=== PATIENT | male | born 1940 | race Caucasian/White ===

== ENCOUNTER 2021-08-10 02:09 | Observation (INO) | payer MEDICARE ==
--- NOTE | 2021-08-10 02:29 | ED ---
Recheck HPI - General Stated Complaint: SOB, weakness Time Seen by Provider: 08/10/21 02:13 Source: RN notes reviewed, old records reviewed Limitations: no limitations - History of Present Illness Initial Comments: This is an 16-year-old male DF for evaluation patient accepted as a transfer patient for CHF. Patient sent to ED are emergency department for persistent CHF exacerbation and patient with difficulty breathing, patient arrives in a stable position without any significant acute complaints. No chest pain currently. MD Complaint: other (Transfer patient for CHF) -: hour(s) Returns Today for: persistent/worsening pain related to initial visit Symptoms Since Prior Visit: worsening swelling Context: planned re-check Associated Symptoms: none Treatments Prior to Arrival: other - Related Data Home Medications Medication Instructions Recorded Confirmed Atorvastatin [Lipitor] 40 mg PO HS 08/10/21 08/10/21 Nitroglycerin Sl Tabs [Nitrostat] 0.4 mg SUBLINGUAL Q5M PRN 08/10/21 08/10/21 Previous Rx's Medication Instructions Recorded Apixaban [Eliquis] 2.5 mg PO BID #60 tablet 08/13/21 Furosemide [Lasix] 40 mg PO BID@0900,1600 #120 tab 08/13/21 Losartan [Cozaar] 25 mg PO HS #30 tab 08/13/21 Metoprolol Tartrate [Lopressor] 12.5 mg PO DAILY #30 tab 08/13/21 Spironolactone [Aldactone] 12.5 mg PO DAILY #30 tab 08/13/21 Allergies Allergy/AdvReac Type Severity Reaction Status Date / Time Sulfa (Sulfonamide AdvReac Rash/Hives Verified 08/10/21 07:05 Antibiotics) ticagrelor [From Brilinta] AdvReac Rash/Hives Verified 08/10/21 07:05 Review of Systems ROS Statement: Those systems with pertinent positive or pertinent negative responses have been documented in the HPI. ROS Other: All systems not noted in ROS Statement are negative. Past Medical History - Past Family History Mother Family Medical History: Congestive Heart Failure (CHF) Father Additional Family Medical History / Comment(s): Unsure what father from Brother(s) Additional Family Medical History / Comment(s): One brother with heart murmur General Exam General appearance: alert, in no apparent distress Head exam: Present: atraumatic, normocephalic, normal inspection Eye exam: Present: normal appearance, PERRL, EOMI. Absent: scleral icterus, conjunctival injection, periorbital swelling ENT exam: Present: normal exam, mucous membranes moist Neck exam: Present: normal inspection. Absent: tenderness, meningismus, lymphadenopathy Respiratory exam: Present: normal lung sounds bilaterally. Absent: respiratory distress, wheezes, rales, rhonchi, stridor Cardiovascular Exam: Present: regular rate, normal rhythm, normal heart sounds. Absent: systolic murmur, diastolic murmur, rubs, gallop, clicks GI/Abdominal exam: Present: soft, normal bowel sounds. Absent: distended, tenderness, guarding, rebound, rigid Extremities exam: Present: normal inspection, full ROM, normal capillary refill. Absent: tenderness, pedal edema, joint swelling, calf tenderness Back exam: Present: normal inspection Neurological exam: Present: alert, oriented X3, CN II-XII intact Psychiatric exam: Present: normal affect, normal mood Skin exam: Present: warm, dry, intact, normal color. Absent: rash Course Vital Signs 08/10/21 08/10/21 08/10/21 02:21 02:33 03:00 Temperature 97.9 F Pulse Rate 76 75 Respiratory 18 18 16 Rate Blood Pressure 129/91 129/90 O2 Sat by Pulse 97 95 Oximetry 08/10/21 08/10/21 08/10/21 04:00 05:04 06:41 Temperature Pulse Rate 78 63 73 Respiratory 18 18 18 Rate Blood Pressure 130/80 126/61 136/71 O2 Sat by Pulse 97 98 96 Oximetry 08/10/21 08/10/21 08/10/21 10:00 11:13 17:00 Temperature Pulse Rate 78 74 75 Respiratory 17 18 18 Rate Blood Pressure 125/65 133/77 O2 Sat by Pulse 98 99 95 Oximetry - Reevaluation(s) Reevaluation #1: Medical record is reviewed Patient symptoms are improving here in the emergency department Patient is informed of results and questions answered Patient is in no acute distress Medical Decision Making - Medical Decision Making 80 male to the emergency department. Patient presents today for evaluation regards to severe shortness of breath with known history of CHF. Patient be admitted for cardiology to evaluate - Lab Data Result diagrams: 08/12/21 10:29 08/13/21 07:39 - EKG Data -: EKG Interpreted by Me (EKG is undetermined 76 QRS 180 QTC 48) Disposition Clinical Impression: Congestive heart failure, Systolic congestive heart failure Disposition: ADMITTED IP TO THIS HOSP Condition: Fair
[2021-08-10] MEDS ORDERED: ASPIRIN 81 MG PO STA (02:35)
[2021-08-10] MEDS ORDERED: MORPHINE SULFATE 4 MG/ML SYRINGE IV PRN (02:35)
[2021-08-10] MEDS ORDERED: NITROGLYCERIN SL TABS 0.4 MG TAB SUBLINGUAL PRN (02:35)
[2021-08-10] MEDS ORDERED: HEPARIN SOD,PORK IN 0.45% NACL 25,000 UNIT in 0.45% NACL 1 250ML.BAG IV SCH (02:45)
[2021-08-10] MEDS ORDERED: IOPAMIDOL CONTRAST (ORAL USE) VIAL PO PRN (12:08)
--- NOTE | 2021-08-10 12:17 | ECHOF ---
Referral Reason: MEASUREMENTS -------- HEIGHT: 170.2 cm WEIGHT: 98.9 kg BP: RVIDd: 2.8 cm (< 3.3) IVSd: 1.2 cm (0.6 - 1.1) LVIDd: 5.2 cm (3.9 - 5.3) LVPWd: 1.1 cm (0.6 - 1.1) IVSs: 1.6 cm LVIDs: 4.5 cm LVPWs: 1.1 cm LAESV Index (A-L): 46.58 ml/m IVSd: 1.0 cm (0.6 - 1.1) LVIDd: 6.0 cm (3.9 - 5.3) LVPWd: 1.0 cm (0.6 - 1.1) IVSs: 1.2 cm LVIDs: 4.7 cm LVPWs: 1.0 cm EDV(Teich): 180 ml ESV(Teich): 103 ml EF(Teich): 43 % %FS: 21 % SV(Teich): 77 ml Ao Diam: 3.4 cm (2.0 - 3.7) AV Cusp: 1.0 cm (1.5 - 2.6) LA Diam: 3.4 cm (2.7 - 3.8) MV EXCURSION: 9.382 mm (> 18.000) MV EF SLOPE: 37 mm/s (70 - 150) EPSS: 1.6 cm MV E Florencio: 1.23 m/s MV DecT: 190 ms MV A Florencio: 0.29 m/s MV E/A Ratio: 4.24 AV maxP.10 mmHg AV meanP.49 mmHg AR PHT: 416 ms RAP: 5.00 mmHg RVSP: 16.70 mmHg FINDINGS -------- This was a technically difficult study with suboptimal views. The left ventricular size is normal. There is mild concentric left ventricular hypertrophy. Overa ll left ventricular systolic function is moderate-severely impaired with, an EF between 30 - 35 %. Increased LAP Grade 3 Diastolic Dysfunction. The right ventricle is normal in size. The left atrial size is normal. The right atrial size is normal. Lumason used Aortic valve is trileaflet and is severely thickened. There is moderate aortic regurgitation. The re is severe aortic stenosis present. Peak/mean gradient across the Aortic Valve is 67.10mmHg / 41. 49mmHg. The mitral valve is normal. The mitral valve leaflets are severely thickened. Severe mitral annul ar calcification present. Mild mitral regurgitation is present. The peak and mean MV gradients ar e 18.34mmHg 3.84mmHg as measured by doppler. Can not exclude possible The tricuspid valve appears structurally normal. Mild tricuspid regurgitation present. Right vent ricular systolic pressure is normal at < 35 mmHg. Trace/mild (physiologic) pulmonic regurgitation. The aortic root size is normal. Normal inferior vena cava with normal inspiratory collapse consistent with estimated right atrial pre ssure of 5 mmHg. There is no pericardial effusion. CONCLUSIONS -------- 1. The left ventricular size is normal. 2. There is mild concentric left ventricular hypertrophy. 3. Overall left ventricular systolic function is moderate-severely impaired with, an EF between 30 - 35 %. 4. Increased LAP Grade 3 Diastolic Dysfunction. 5. Aortic valve is trileaflet and is severely thickened. 6. There is moderate aortic regurgitation. 7. There is severe aortic stenosis present. 8. Peak/mean gradient across the Aortic Valve is 67.10mmHg / 41.49mmHg. 9. The mitral valve leaflets are severely thickened. 10. Severe mitral annular calcification present. 11. Mild mitral regurgitation is present. 12. Mild tricuspid regurgitation present. 13. Trace/mild (physiologic) pulmonic regurgitation. 14. There is no pericardial effusion. DOCTOR OF NURSING PRACTICE: Valentina Gray RDCS
[2021-08-10] MEDS: APIXABAN 5 MG TAB PO SCH ×2 (14:01→22:44)
--- NOTE | 2021-08-10 14:08 | P.HPIM ---
History of Present Illness H&P Date: 08/10/21 Chief Complaint: Short of breath History of presenting complaint: This is a pleasant 80-year-old patient Dr. Paz. Chronic stable medical conditions include hyperlipidemia, BPH, hypertension, CAD with stent, atrial flutter fibrillation. Patient presented to [facility] for very was transferred here. Patient stated his shortness of breath has been present for close six-month to one-year and progressively getting worse. No edema. Of recent increase got a cough with some white phlegm. Also has been losing weight. Patient was negative for COVID-19/influenza A and B. No fever no chills. Feels tired and rundown. Computed tomography scan and other place was negative for PE. Did show some pleural effusion. Review of systems: GEN.: Decrease appetite some weight loss EYES: None HEENT: None NECK: None RESPIRATORY: As above CARDIOVASCULAR: None GASTROINTESTINAL: None GENITOURINARY: Decreased urine stream MUSCULOSKELETAL: Joint pains LYMPHATICS: None HEMATOLOGICAL: None PSYCHIATRY: None NEUROLOGICAL: None Past medical history to include: Hyperlipidemia, BPH, hypertension, CAD with a stent in 2013, atrial fibrillation Social history: Patient smokes cigars occasionally. . Used to local [facility]. Her diet. Alcohol occasionally. Family history: Reviewed, known cardiac presentation Physical examination: VITAL SIGNS: Afebrile, 78, 18, 1:30/80, 97% room air GENERAL: BMI 34.1, sitting up in bed, feeling a bit tired. EYES: Pupils equal. Conjunctiva normal. HEENT: External appearance of nose and ears normal, oral cavity grossly normal. NECK: JVD not raised; masses not palpable. HEART: First and second heart sounds are normal; no edema. LUNGS: Respiratory rate increased, decreased breath sounds. ABDOMEN: Soft, nontender, liver spleen not palpable, no masses palpable. PSYCH: Alert and oriented x3; mood and affect normal. MUSCULAR skeletal: Evidence of OA NEUROLOGICAL: Cranial nerves grossly intact; no facial asymmetry, power and sensation grossly intact. LYMPHATICS: No lymph nodes palpable in the axilla and neck INVESTIGATIONS, reviewed in the clinical context: Troponin I 0.026, 0.034. EKG tracing personally reviewed by me-atrial flutter fibrillation with a controlled ventricular rate nonspecific ST segment changes Chest x-ray film personally reviewed by me-no infiltrates, cardiomegaly 2-D echocardiogram: EF 30-35% moderate aortic regurgitation severe aortic stenosis Investigations from [facility]: Troponin 0.047, COVID-19/influenza A/influenza B: All negative WBC 9.8 hemoglobin 13.1 platelets 199 sodium 135 potassium 5.1 BUN 23 creatinine 1.3 Computed tomography scan of the chest shows cardiomegaly, pleural effusion negative for PE. Assessment and plan: -This is a patient has been progressively short of breath anywhere from 6 months to a year. With some weight loss. Will need to rule out underlying malignancy. We will do a computed tomography scan of the abdomen pelvis with contrast -COPD in a light cigar smoker DuoNeb -Severe aortic stenosis with moderate aortic regurgitation, accompanied by cardiomyopathy. Patient should be assessed for surgical intervention. Cardiology and cardiothoracic surgery consulted. -Persistent atrial flutter fibrillation, rate controlled Tenormin 25 mg daily at bedtime. Started on eliquis. -Chronic congestive heart failure from systolic dysfunction EF 30-35%. Possibly a combination of ischemic at a myopathy, severe aortic stenosis. add Aldactone 12.5 mg, Cozaar 12.5 mg daily at bedtime -BPH At Flomax 0.4 mg daily at bedtime -Essential hypertension Tenormin 25 mg daily at bedtime. -Chronic, CAD with a stent in 2013. Asymptomatic Continue aspirin. Tenormin 25 mg daily at bedtime -Hyperlipidemia Lipitor 40 mg daily at bedtime Patient started on eliquis. Consultation to cardiology and cardiothoracic surgery. Care was discussed with the patient. Computed tomography scan of the abdomen pelvis with contrast to rule out any malignancy. We'll also check CEA and alpha feta protein Given the complexity and severity of patient's condition expect the patient to be in the hospital at least for 2 overnights Past Medical History Additional Past Medical History / Comment(s): Urinary hesitancy, Hyperlipidemia, Enlarged prostate, Hypertension, CAD, Controlled A-fib, History of Any Multi-Drug Resistant Organisms: None Reported Additional Past Surgical History / Comment(s): 1 stent placed in 2013, Nasal surgery Past Psychological History: No Psychological Hx Reported Smoking Status: Current some day smoker Past Alcohol Use History: Occasional Medications and Allergies Home Medications Medication Instructions Recorded Confirmed Type Aspirin EC [Ecotrin Low Dose] 81 mg PO DAILY 08/10/21 08/10/21 History Atorvastatin [Lipitor] 40 mg PO HS 08/10/21 08/10/21 History Nitroglycerin Sl Tabs [Nitrostat] 0.4 mg SUBLINGUAL Q5M PRN 08/10/21 08/10/21 History atenoloL [Tenormin] 25 mg PO HS 08/10/21 08/10/21 History Allergies Allergy/AdvReac Type Severity Reaction Status Date / Time Sulfa (Sulfonamide AdvReac Rash/Hives Verified 08/10/21 07:05 Antibiotics) ticagrelor [From Brilinta] AdvReac Rash/Hives Verified 08/10/21 07:05 Physical Exam Vitals: Vital Signs Temp Pulse Resp BP Pulse Ox 08/10/21 06:41 73 18 136/71 96 08/10/21 05:04 63 18 126/61 98 08/10/21 04:00 78 18 130/80 97 08/10/21 03:00 75 16 129/90 95 08/10/21 02:33 18 08/10/21 02:21 97.9 F 76 18 129/91 97 Intake and Output 08/09/21 08/10/21 08/10/21 22:59 06:59 14:59 Other: Weight 98.883 kg
--- NOTE | 2021-08-10 14:14 | CT ---
EXAMINATION TYPE: CT abdomen pelvis w con DATE OF EXAM: 08/10/2021 COMPARISON: None. HISTORY: weight loss CT DLP: 1540.5 mGycm, Automated Exposure Control for Dose Reduction was Utilized. CONTRAST: CT scan of the abdomen and pelvis is performed with oral and with IV Contrast, patient injected with 100 mL of Isovue 300. FINDINGS: LUNG BASES: Small to tiny right slightly larger than left bilateral pleural effusions with associated compressive atelectasis. Calcification level of the mitral valve. Right coronary artery calcificatio n. LIVER/GB: No significant abnormality is appreciated. PANCREAS: Mild to moderate generalized fat replaced atrophy. SPLEEN: No significant abnormality is seen. ADRENALS: No significant abnormality is seen. KIDNEYS: Late phase imaging as there is excretion. No hydronephrosis bilaterally. Some cortical thinn ing greater in the left kidney is noted. Mildly distended contrast filled bladder. BOWEL: Oral contrast reaches sigmoid colon. There is redundant sigmoid colon. No suspicious small or large bowel dilatation. PROSTATE/SEMINAL VESICLES: No gross abnormality seen. LYMPH NODES: No greater than 1cm abdominal or pelvic lymph nodes are appreciated. OSSEOUS STRUCTURES: Underlying scoliosis. Underlying moderate to severe multilevel spurring and disc space narrowing with findings greatest right L2-L3 and left L4-L5 levels. OTHER: Moderate peripheral plaque in the abdominal aorta extends into branch vessels. Aneurysm up to 3.8 cm transversely axial image 36 noted. IMPRESSION: No suspicious mass or adenopathy to suggest neoplasm.
--- NOTE | 2021-08-10 14:59 | XR ---
EXAMINATION TYPE: XR chest 2V DATE OF EXAM: 08/10/2021 COMPARISON: Chest x-ray 11/19/2015 CT 08/10/2021 HISTORY: Shortness of breath TECHNIQUE: Frontal and lateral views of the chest are obtained. FINDINGS: There is no focal air space opacity or pneumothorax seen. Minimal blunting of the posteri or costophrenic angle noted seen on the lateral exam. The cardiac silhouette size is within normal li mits. There are overlying leads. Aorta is dense. The osseous structures are intact, high riding shou lders could be due to chronic rotator cuff tears.. IMPRESSION: Small bilateral pleural effusions
--- NOTE | 2021-08-10 15:51 | CONS ---
CONSULTATION This is an 80-year-old gentleman with a history of atrial fibrillation, CAD with prior PCI and has had some bleeding issues with Brilinta. He also has benign hypertension. He came into the hospital upon a transfer from [place], where he presented with complaints of increasing shortness of breath for about one month's duration. He smokes about half pack of cigarettes daily. He has nondescript intermittent sharp chest pain not suggestive of angina, but seems to be coming randomly. His troponin levels are equivocal, do not suggest myocardial injury, and his shortness of breath also seems to have improved after he arrived. He is not on any blood thinners at this time and there is a remote history of some issues of bleeding with Brilinta after his stent in 2013, the details of which are not available. The patient is a very poor historian and does not give much meaningful information. However, he insists that he is feeling better. He has no shortness of breath and when he came into the hospital at [place], he complained of shortness of breath on and off through the day for the last month or so. No chest pain at the time of my evaluation. EKG reveals atrial fibrillation, controlled rate, nonspecific ST-T changes. He is resting comfortably without symptoms. PAST MEDICAL HISTORY: 1. Probable atrial fibrillation, although patient does not indicate. 2. CAD with prior stenting, details unavailable, in 2013. 3. Benign hypertension. PHYSICAL EXAMINATION: On examination, blood pressure is 128/70, pulse rate is about 84 per minute, irregular. HEENT unremarkable. Fundus was not examined by me. NECK: Supple. There is JVD of 1 cm. No carotid bruit. Heart exam reveals S1, S2 with ejection systolic murmur audible at the base. Second heart sound is preserved. Lungs reveal decent air entry with fine basal rales. Abdomen is soft, nontender. Lower extremities reveal palpable but diminished pulses. Central nervous system grossly no focal deficits. IMPRESSION: 1. Atypical chest pain. 2. Shortness of breath of unclear etiology. CT angio of the chest was negative for any pulmonary embolism. 3. Probable congestive heart failure, which seems to have improved after intravenous Lasix. 4. History of possibly some dementia, although this is unclear. RECOMMENDATIONS: Patient's clinical picture suggests more of congestive heart failure. Pulmonary embolism has been ruled out. Troponins are equivocal. I am recommending that we obtain echocardiogram to assess LV function, place him on atenolol 25 mg daily, Eliquis 5 mg b.i.d., discontinue IV heparin. No aspirin. Lipitor will be 40 mg daily. Based on clinical course, I will make further recommendations. ANA / BENY: [id number] /
--- NOTE | 2021-08-10 16:58 | P.GSCN ---
History of Present Illness Consult date: 08/10/21 Reason for Consult: Severe aortic stenosis Requesting physician: Erick Ruelas History of present illness: This is an 80-year-old gentleman who follows on an outpatient basis with Dr. Paz. He has a previous medical history of coronary artery disease with myocardial infarction and stenting in 2013, hypertension, hyperlipidemia, BPH, and questionable atrial fibrillation on no current anticoagulation outpatient. Apparently this gentleman has been experiencing progressive exertional shortness of breath associated with chest discomfort over the last several months, however it has gotten progressively worse over the last month, and was bad enough to cause concern in the last couple of days so he presented to [facility] for evaluation and treatment. Of note the patient does state he has had a significant weight loss over the prior month as well. At [facility] his Covid/influenza A/influenza B tests were negative, WBC 9.81, hemoglobin 13.1, BUN 23, creatinine 1.3, AST 70, ALT 73, INR 1.29, lactic acid 3.8, BNP 18118, and troponin 0.047. He was given IV Lasix which he states made him feel better. Due to his troponin and presenting symptoms the patient was transferred to [facility] for further monitoring and evaluation. Repeat troponin here was 0.026 and 0.034. [place] [address]. EKG demonstrated controlled atrial fibrillation. Cardiology was consulted with recommendations for echocardiogram. Transthoracic echocardiogram was completed demonstrating impaired left ventricular systolic function with EF 30-35%, grade 3 diastolic dysfunction, moderate aortic insufficiency, severe aortic stenosis with peak/mean gradients 67/41 mmHg, mild mitral regurgitation with severe MAC, and mild tricuspid regurgitation. Due to findings of severe aortic stenosis consultation was place d to cardiothoracic surgery. Review of Systems Review of systems was completed and was negative except as noted - Constitutional Reports as per HPI, Reports weight loss - Cardiovascular Reports as per HPI, Reports chest pain, Reports decreased exercise tolerance, Reports dyspnea on exertion, Reports shortness of breath - Respiratory Reports as per HPI, Reports dyspnea Past Medical History Past Medical History: Coronary Artery Disease (CAD), Heart Failure, Hyperlipidemia, Hypertension, Myocardial Infarction (PR) Additional Past Medical History / Comment(s): Urinary hesitancy, Enlarged prostate, Controlled A-fib, History of Any Multi-Drug Resistant Organisms: None Reported Past Surgical History: Heart Catheterization With Stent Additional Past Surgical History / Comment(s): 1 stent placed in 2013, Nasal surgery Past Anesthesia/Blood Transfusion Reactions: No Reported Reaction Past Psychological History: No Psychological Hx Reported Smoking Status: Current some day smoker Past Alcohol Use History: Occasional Past Drug Use History: None Reported Additional History: Smokes an occasional cigar, 1-2 beers per week - Past Family History Mother Family Medical History: Congestive Heart Failure (CHF) Father Additional Family Medical History / Comment(s): Unsure what father from Brother(s) Additional Family Medical History / Comment(s): One brother with heart murmur Medications and Allergies Home Medications Medication Instructions Recorded Confirmed Type Aspirin EC [Ecotrin Low Dose] 81 mg PO DAILY 08/10/21 08/10/21 History Atorvastatin [Lipitor] 40 mg PO HS 08/10/21 08/10/21 History Nitroglycerin Sl Tabs [Nitrostat] 0.4 mg SUBLINGUAL Q5M PRN 08/10/21 08/10/21 History atenoloL [Tenormin] 25 mg PO HS 08/10/21 08/10/21 History Allergies Allergy/AdvReac Type Severity Reaction Status Date / Time Sulfa (Sulfonamide AdvReac Rash/Hives Verified 08/10/21 07:05 Antibiotics) ticagrelor [From Brilinta] AdvReac Rash/Hives Verified 08/10/21 07:05 Surgical - Exam Vital Signs Temp Pulse Resp BP Pulse Ox 97.9 F 76 18 129/91 97 08/10/21 02:21 08/10/21 02:21 08/10/21 02:21 08/10/21 02:21 08/10/21 02:21 CONSTITUTIONAL: Awake and alert, appears comfortable, cooperative, well- developed, well-nourished, no pain, no acute distress EYES: Pupils equal, round, reactive to light, normal ocular movement ENT: Moist mucous membranes without oral lesions present, no upper teeth NECK: No masses, no bruits, trachea midline RESPIRATORY: Lungs sounds diminished to auscultation bilaterally. Respirations even, nonlabored. Currently on room air with oxygen saturation 98%. Strong cough. No chest wall deformities. No clubbing or cyanosis present CARDIOVASCULAR: S1, S2 present, positive systolic murmur. Irregular rate and rhythm, controlled age of fibrillation on telemetry. Palpable peripheral pulses bilaterally. No edema present. No calf pain or tenderness noted. GASTROINTESTINAL: Abdomen soft, nontender, nondistended without masses or organomegaly noted. There is no rebound or guarding present. Active bowel sounds present 4 quadrants. GENITOURINARY: Deferred INTEGUMENTARY: Skin is warm and dry with evidence of good perfusion. NEUROLOGIC: Cranial nerves II through XII intact, normal coordination, no obvious motor or sensory deficits, speech is normal MUSKULOSKELETAL: Able to move all extremities, strength equal bilaterally, normal posture PSYCHIATRIC: Alert and oriented to person place and time, appropriate affect, intact judgment and insight Results - Imaging Chest x-ray: report reviewed, image reviewed CT scan - abdomen: report reviewed, image reviewed CT scan - pelvis: report reviewed, image reviewed EKG: image reviewed Assessment and Plan Assessment: 1. Severe aortic stenosis with peak/mean gradient 67/41 mmHg, moderate aortic insufficiency 2. Acute on chronic systolic heart failure with EF 30-35%, cardiomyopathy, grade 3 diastolic dysfunction 3. Shortness of breath secondary to above 4. History of coronary artery disease with myocardial infarction and stenting in 2013 5. History of hypertension, treated 6. History of hyperlipidemia, treated 7. Enlarged prostate 8. Questionable history of atrial fibrillation on no current anticoagulation outpatient Plan: The patient was seen and examined in the emergency room. Chart/diagnostics were reviewed. The case was discussed with Dr. Johns. Currently the patient is in no distress, he denies any pain or shortness of breath and does not want to stay in the hospital for very long. He is also worried about multiple tests and whether or not insurance will pay for them. We did discuss treatment for aortic stenosis including surgical as well as transcatheter aortic valve replacement. The patient is not committed but is willing to consider treatment. We will order carotid Dopplers, pulmonary function test, and lab work which has not yet been completed. If patient is agreeable to aortic valve replacement he will need heart catheterization to evaluate coronary arteries, transesophageal echocardiogram to further evaluate valves, and dental clearance as well as gated CT if the plan is for TAVR. Once all testing has been completed an STS risk score will be calculated and discussed with the patient. If cardiology is in agreement the patient can be seen in the valve clinic as an outpatient after all testing has been completed for shared decision-making with the entire structural heart team. Medical management of other comorbidities per primary care, cardiology. More recommendations to follow. Thank you Dr. Ruelas for this consult. We look forward to working with you with the care of your patient Time with Patient: Greater than 30
[2021-08-10] MEDS: SPIRONOLACTONE 25 MG TAB PO SCH (18:21)
--- NOTE | 2021-08-10 18:26 | US ---
EXAMINATION TYPE: US carotid duplex BILAT DATE OF EXAM: 08/10/2021 COMPARISON: NONE CLINICAL HISTORY: preop valve surgery. EXAM MEASUREMENTS: RIGHT: Peak Systolic Velocity (PSV) cm/sec ----- Right CCA: 66.7 ----- Right ICA: 91.9 ----- Right ECA: 68.0 ICA/CCA ratio: 1.4 RIGHT: End Diastole cm/sec ----- Right CCA: 10.0 ----- Right ICA: 9.5 ----- Right ECA: 5.4 LEFT: Peak Systolic Velocity (PSV) cm/sec ----- Left CCA: 41.9 ----- Left ICA: 128.2 ----- Left ECA: 90.8 ICA/CCA ratio: 3.1 LEFT: End Diastole cm/sec ----- Left CCA: 0.0 ----- Left ICA: 5.1 ----- Left ECA: 12.6 VERTEBRALS (direction of flow): Right Vertebral: Antegrade Left Vertebral: Antegrade Rhythm: Normal Moderate/severe amount of plaque visualized in bilateral bulbs, left greater than right. Slightly mica vated velocities visualized left proximal ICA. Elevated ICA/CCA ratio on the left IMPRESSION: There is antegrade flow in the vertebral arteries. The images and measurements suggest 50% stenosis i n the right common and internal carotid artery. There is 50-70% stenosis in the left common and inter nal carotid artery. Criteria for Assigning % of Stenosis / Diameter reduction (Estimation based on the indirect measurements of the internal carotid artery velocities (ICA PSV). 1. Normal (no stenosis)=ICA PSV < 125 cm/s: ratio < 2.0: ICA EDV<40 cm/s. 2. Less than 50% stenosis=ICA PSV < 125 cm/s: ratio < 2.0: ICA EDV<40 cm/s. 3. 50 to 69% stenosis=ICA PSV of 125 to 230 cm/s: ration 2.0 ? 4.0: ICA EDV 40-100 cm/s. 4. Greater than 70% stenosis to near occlusion= ICA PSV > 230 cm/s: ratio > 4.0: ICA EDV > 100 cm/s. 5. Near occlusion= ICA PSV velocities may be low or undetectable: variable ratio and ICA EDV. 6. Total occlusion=unable to detect flow.
[2021-08-10] MEDS ORDERED: LOSARTAN 25 MG TAB PO SCH (21:00)
[2021-08-10] MEDS ORDERED: atenoloL 25 MG TAB PO SCH (21:00)
[2021-08-10] MEDS: ATORVASTATIN 40 MG TAB PO SCH (22:44)
[2021-08-11 07:35] LABS: Magnesium 2.1 mg/dL (1.6-2.3); Potassium 4.6 mmol/L (3.5-5.1)
[2021-08-11] MEDS ORDERED: ASPIRIN 325 MG TAB PO SCH (09:00)
[2021-08-11] MEDS: FUROSEMIDE 20 MG TAB PO SCH ×2 (09:00→17:02)
[2021-08-11] MEDS: METOPROLOL TARTRATE 12.5 MG TAB PO SCH (09:00)
[2021-08-11] MEDS ORDERED: ASPIRIN 81 MG PO SCH (09:00)
[2021-08-11] MEDS: ENOXAPARIN 80 MG/0.8 ML SYRINGE SQ SCH ×2 (09:01→20:38)
[2021-08-11] MEDS: SODIUM CHLORIDE 0.9% 1,000 ML IV SCH (09:01)
[2021-08-11] MEDS: SPIRONOLACTONE 25 MG TAB PO SCH (09:01)
[2021-08-11] MEDS ORDERED: ALPRAZolam 0.5 MG TAB PO PRN (09:13)
[2021-08-11] MEDS ORDERED: ALPRAZolam 0.25 MG TAB PO PRN (09:13)
--- NOTE | 2021-08-11 09:14 | P.PN ---
Subjective Progress Note Date: 08/11/21 Principal diagnosis: Severe aortic valve stenosis, with transthoracic echocardiogram demonstrating impaired left ventricular systolic function with an ejection fraction 30-35%, and moderate aortic valve insufficiency. Past medical history significant for coronary artery disease with myocardial infarction and stent placement in 2013, hypertension, hyperlipidemia, BPH and paroxysmal atrial fibrillation on no current anticoagulation as an outpatient. The patient was seen in follow-up today 08/11/2021 at his bedside on the cardiac stepdown unit. Currently he is laying in bed with his head elevated, is awake, alert and oriented 3 and is in no acute distress. Denies any complaints of shortness of breath, chest pain/pressure, although is complaining of some abdominal cramping. The patient reports she has been having abdominal cramping with diarrhea off and on for the last 3-4 weeks with about a 20 pound weight loss over that time. A consult was placed by primary care service for the patient to be evaluated for his aortic valve stenosis. A transthoracic echocardiogram was completed yesterday which demonstrated mild concentric left ventricular hypertrophy, and overall left ventricular systolic function to be moderate to severely impaired with an ejection fraction between 30-35%, increased LAP grade 3 diastolic dysfunction, a trileaflet aortic valve to be severely thickened with severe aortic valve stenosis, a peak/mean gradient across aortic valve of 67.10 mmHg/41.49 mmHg, moderate aortic valve regurgitation, severe mitral annular calcification, mild mitral valve regurgitation, mild tricuspid valve regurgitation and trace to mild pulmonic valve regurgitation. A bedside FEV1 was completed yesterday which showed a predicted value of 34%, 1.76 L. Currently is on room air with oxygen saturations 96% and he is achieving 1500 mL on his incentive spirometry. He also underwent a carotid duplex study yesterday which showed a 50% right internal carotid stenosis and a 50-70% left internal carotid artery stenosis. The patient is being followed by cardiology. The patient has been afebrile the last 24 hours, remote telemetry showing atrial fibrillation heart rate 59 BPM. He remains on aspirin, statin, Lasix, Aldactone and beta krystyna. Objective - Vital Signs Vital signs: Vital Signs Temp 97.6 F 08/11/21 07:56 Pulse 71 08/11/21 07:56 Resp 16 08/11/21 07:56 BP 97/62 08/11/21 07:56 Pulse Ox 96 08/11/21 07:56 Intake & Output 08/10/21 08/11/21 08/11/21 18:59 06:59 18:59 Intake Total 45.833 Balance 45.833 Weight 90.1 kg Intake: Intake, IV Titration 45.833 Amount Heparin Sod,Pork in 0.45% 45.833 NaCl 25,000 unit In 0.45 % NaCl 1 250ml.bag @ 10. 113 UNITS/KG/HR 10 mls/hr IV .Q24H [facility] Rx#: [id number] Other: Voiding Method Toilet # Voids 1 # Bowel Movements 1 - Exam CONSTITUTIONAL: Lying in bed with his head elevated on the cardiac stepdown unit, appears comfortable, cooperative, no apparent acute distress. HEENT: Neck is supple, no JVD, no lymphadenopathy. RESPIRATORY: Lungs sounds essentially clear throughout, diminished to his bilateral bases with few scattered crackles. Respirations are symmetrical and nonlabored. Currently room air with oxygen saturations 96%. Able to achieve 1500 mL on their incentive spirometry. Strong cough. CARDIOVASCULAR: Irregular rhythm and controlled rate. S1 and S2 present, negative for S3, or gallop. Positive systolic murmur. Palpable peripheral pulse s bilaterally. Remote telemetry showing atrial fibrillation heart rate 59 BPM. GASTROINTESTINAL: Abdomen soft, nontender, nondistended. Active bowel sounds present 4 quadrants. Tolerating diet. Passing flatus. No organomegaly appreciated. No guarding or rigidity. Obese. GENITOURINARY: Continues to void. INTEGUMENTARY: Skin is warm and dry with no evidence of clubbing or cyanosis. NEUROLOGIC: Cranial nerves II through XII intact. No focal deficits. MUSKULOSKELETAL: Able to move all extremities, strength equal bilaterally, generalized weakness. PSYCHIATRIC: Alert and oriented to person place and time, appropriate affect, intact judgment and insight. - Allied health notes Allied health notes reviewed: nursing - Labs CBC & Chem 7: 08/11/21 06:41 - Imaging and Cardiology Chest x-ray: report reviewed, image reviewed Carotid duplex study results reviewed. FEV1 results reviewed. Assessment and Plan Assessment: 1. Severe aortic valve stenosis with a peak/mean gradient 67/41 mmHg, moderate aortic insufficiency 2. Acute on chronic systolic heart failure with EF 30-35%, cardiomyopathy, grade 3 diastolic dysfunction 3. Shortness of breath secondary to above 4. History of coronary artery disease with myocardial infarction and stenting in 2013 5. History of hypertension, treated 6. Dyslipidemia, treated 7. Benign prostatic hypertrophy 8. Paroxysmal atrial fibrillation on no current anticoagulation outpatient, currently on Lovenox Plan: 1. Continue to maximize medical therapy with aspirin, statin, beta krystyna, Lasix, Aldactone and Cozaar managed by cardiology. 2. We will continue to follow on an as-needed basis, if the patient is considered a candidate for TAVR he will be followed on an outpatient basis in the structural heart clinic. 3. He is scheduled for a heart catheterization tomorrow 08/12/2021 to be completed by Dr. DANILO Park. 4. Continue to encourage use of his incentive spirometry 10 times every hour while awake. 5. At this time the patient is unsure whether he would want to undergo any type of valve surgery, he reports that in 2013 he was supposed to undergo a valve surgery and did not follow-up. 6. Medical management and other comorbidities per primary care and cardiology service. 7. Please feel free to reconsult for any further questions or workup regarding TAVR. Time with Patient: Greater than 30
--- NOTE | 2021-08-11 09:14 | P.PN ---
Subjective This is a pleasant 80-year-old male past medical history significant for coronary artery disease status post PCI, atrial fibrillation, hypertension, chronic nicotine dependence and dyslipidemia. He has followed in the past with Dr. Paulino but has not been to the office since 2016. At that time he was known to have atrial fibrillation however declined anticoagulation. He also had a known history of aortic stenosis. Echocardiogram obtained at that time January 2017 revealed preserved LV systolic function with ejection fraction 50%, mildly dilated right atrium, thickened aortic valve with a mean gradient of 30 mmHg and mild tricuspid regurgitation. Catheterization report reviewed from [facility] from 2013 revealing left main angiographically normal, LAD with a 60% lesion in the midsegment, circumflex with a long 70% proximal lesion and RCA with a proximal lesion. At that time he underwent successful angioplasty and PC I with a bare metal stent to the RCA. He is seen and examined resting comfortably sitting up in bed in no acute distress. He complains of feeling a little short of breath last night however he states this morning he felt better. He did get up and ambulate to the bathroom without difficulty. Blood pressure 97/62 heart rate 71 afebrile maintaining oxygen saturation on room air. Telemetry tracings reviewed, he continues to be in atrial fibrillation with controlled ventricular rates. No ventricular arrhythmias or significant pauses noted. Currently maintained on Eliquis 2.5 mg twice a day, atorvastatin 80 mg daily, losartan 12.5 mg at bedtime, atenolol 25 mg at bedtime and Aldactone 12.5 mg daily. Echocardiogram obtained reveals impaired LV systolic function with ejection fraction 30-35%, grade 3 diastolic dysfunction, aortic valve is trileaflet and severely thickened with moderate aortic regurgitation and severe aortic stenosis with a mean gradient of 41 mmHg, severe mitral annular calcification with mild mitral regurgitation and mild tricuspid regurgitation. GENERAL: Well-appearing, well-nourished and in no acute distress. NECK: Supple without JVD or thyromegaly. LUNGS: Breath sounds clear to auscultation bilaterally. Respiration equal and unlabored. No wheezes, rales or rhonchi. HEART: Irregular rate and rhythm with systolic ejection murmur at the base, no rubs or gallops. S1 and S2 heard. EXTREMITIES: Normal range of motion, no edema. No clubbing or cyanosis. Perip heral pulses intact. ASSESSMENT Acute systolic heart failure Aortic stenosis Coronary artery disease status post PCI to the RCA in 2013 with residual disease noted in the circumflex and LAD Chronic persistent atrial fibrillation with controlled ventricular rates Hypertension Dyslipidemia Chronic nicotine dependence PLAN Lengthy discussion had with the patient regarding need for repeat cardiac ca theterization to assess coronary artery disease prior to evaluation of aortic valve repair. He is agreeable to undergo cardiac catheterization tomorrow. I have discussed the risks, benefits and alternative therapies for the above- mentioned procedure and for both sedation/analgesia as well as necessary blood product administration, if indicated, as they pertain to this patient. The patient has indicated understanding and acceptance of the risks and procedures discussed. Questions have been answered appropriately. Hold Eliquis and initiate Lovenox pending cardiac catheterization. Change beta krystyna to metoprolol 12.5 mg daily in the morning. Increase losartan to 25 mg. Initiate Lasix 60 mg by mouth twice a day. Check BMP today and in the morning. Further recommendations to follow based upon clinical course. Nurse Practitioner note has been reviewed, I agree with a documented findings and plan of care. Patient was seen and examined. Objective - Vital Signs Vital signs: Vital Signs Temp 97.6 F 08/11/21 07:56 Pulse 71 08/11/21 07:56 Resp 16 08/11/21 07:56 BP 97/62 08/11/21 07:56 Pulse Ox 96 08/11/21 07:56 Intake & Output 08/10/21 08/11/21 08/11/21 18:59 06:59 18:59 Intake Total 45.833 Balance 45.833 Weight 90.1 kg Intake: Intake, IV Titration 45.833 Amount Heparin Sod,Pork in 0.45% 45.833 NaCl 25,000 unit In 0.45 % NaCl 1 250ml.bag @ 10. 113 UNITS/KG/HR 10 mls/hr IV .Q24H [facility] Rx#: [id number] Other: Voiding Method Toilet # Voids 1 # Bowel Movements 1 - Labs CBC & Chem 7: 08/11/21 06:41
[2021-08-11 10:20] LABS: Calcium 9.1 mg/dL (8.4-10.2); Potassium 4.5 mmol/L (3.5-5.1)
--- NOTE | 2021-08-11 19:13 | P.PN ---
Progress Note - Text Progress Note Date: 08/11/21 Chief Complaint: Short of breath History of presenting complaint: This is a pleasant 80-year-old patient Dr. Paz. Chronic stable medical conditions include hyperlipidemia, BPH, hypertension, CAD with stent, atrial flutter fibrillation. Patient presented to [facility] for very was transferred here. Patient stated his shortness of breath has been present for close six-month to one-year and progressively getting worse. No edema. Of recent increase got a cough with some white phlegm. Also has been losing weight. Patient was negative for COVID-19/influenza A and B. No fever no chills. Feels tired and rundown. Computed tomography scan and other place was negative for PE. Did show some pleural effusion. Patient felt to have angina equivalent from severe aortic stenosis., Underlying CAD, cardiomyopathy. Patient did receive IV Lasix yesterday. August 11: Sitting up in bed. Tired. Seen by Dr. DANILO Park from cardiology. On by mouth Lasix. Plan is for cardiac catheterization tomorrow. On IV heparin. Patient has previously followed with cardiothoracic surgery and had declined surgery in the past. Patient has several questions about the same. I did discuss with him in broad terms. Review of systems: Was done for constitutional, cardiovascular, GI, pulmonary. relevant finding as above Active Medications Alprazolam (Alprazolam 0.25 Mg Tab) 0.25 mg PO Q6HR PRN PRN Reason: Mild Anxiety Alprazolam (Alprazolam 0.5 Mg Tab) 0.5 mg PO Q6HR PRN PRN Reason: Moderate Anxiety Aspirin (Aspirin 325 Mg Tab) 325 mg PO ONCE ONE Stop: 08/12/21 06:01 Atorvastatin Calcium (Atorvastatin 40 Mg Tab) 40 mg PO HS [facility] Last Admin: 08/10/21 22:44 Dose: 40 mg Documented by: Enoxaparin Sodium (Enoxaparin 80 Mg/0.8 Ml Syringe) 80 mg SQ Q12HR [facility] Last Admin: 08/11/21 09:01 Dose: 80 mg Documented by: Furosemide (Furosemide 20 Mg Tab) 60 mg PO BID@0900,1600 [facility] Last Admin: 08/11/21 17:02 Dose: 60 mg Documented by: Sodium Chloride (Saline 0.9%) 1,000 mls @ 20 mls/hr IV .Q24H [facility] Last Admin: 08/11/21 09:01 Dose: 20 mls/hr Documented by: Sodium Chloride 1,000 ml/ IV (Solution) 1,000 mls @ 90.1 mls/hr IV .Q11H6M [facility] Heparin Sodium (Porcine) 10, (000 unit/ Sodium Chloride) 1,001 mls @ 999 mls/hr IRRIGATION ONCE PRN PRN Reason: INTRA-OP Stop: 08/12/21 23:00 Heparin Sodium (Porcine) 2,500 (unit/ Sodium Chloride) 250.5 mls @ 250 mls/hr IRRIGATION ONCE PRN PRN Reason: INTRA-OP Stop: 08/12/21 23:00 Losartan Potassium (Losartan 25 Mg Tab) 25 mg PO [facility] Metoprolol Tartrate (Metoprolol Tartrate 12.5 Mg Tab) 12.5 mg PO DAILY [facility] Last Admin: 08/11/21 09:00 Dose: 12.5 mg Documented by: Nitroglycerin (Nitroglycerin Sl Tabs 0.4 Mg Tab) 0.4 mg SUBLINGUAL Q5M PRN PRN Reason: Chest Pain Spironolactone (Spironolactone 25 Mg Tab) 12.5 mg PO DAILY [facility] Last Admin: 08/11/21 09:01 Dose: 12.5 mg Documented by: Past medical history to include: Hyperlipidemia, BPH, hypertension, CAD with a stent in 2013, atrial fibrillation Social history: Patient smokes cigars occasionally. . Used to local [facility]. Her diet. Alcohol occasionally. Family history: Reviewed, known cardiac presentation Physical examination: VITAL SIGNS: 97.6, 71, 16, 97.62, 96% room air GENERAL: Reclining in bed, awake, tired EYES: Pupils equal. Conjunctiva normal.. NECK: JVD not raised; masses not palpable. HEART: First and second heart sounds are normal; no edema. LUNGS: Respiratory rate increased, decreased breath sounds. ABDOMEN: Soft, nontender, liver spleen not palpable, no masses palpable. PSYCH: Alert and oriented x3; mood and affect normal. MUSCULAR skeletal: Evidence of OA INVESTIGATIONS, reviewed in the clinical context: August 11: Sodium 132 potassium 4.5 BUN 32 creatinine 1.40 Computed tomography scan of abdomen pelvis: Some chronic changes Carotid Doppler: 50% stenosis in the right common internal carotid artery. 50- 70% stenosis with left common and internal carotid artery. Troponin I 0.026, 0.034. EKG tracing personally reviewed by me-atrial flutter fibrillation with a controlled ventricular rate nonspecific ST segment changes Chest x-ray film personally reviewed by me-no infiltrates, cardiomegaly 2-D echocardiogram: EF 30-35% moderate aortic regurgitation severe aortic stenosis Investigations from [facility]: Troponin 0.047, COVID-19/influenza A/influenza B: All negative WBC 9.8 hemoglobin 13.1 platelets 199 sodium 135 potassium 5.1 BUN 23 creatinine 1.3 Computed tomography scan of the chest shows cardiomegaly, pleural effusion negative for PE. Assessment and plan: -Possible angina eqivalent/short of breath from severe aortic stenosis, cardiomyopathy, and underlying ischemic heart disease: Sodium respond Follow with cardiology -COPD in a light cigar smoker DuoNeb -Severe aortic stenosis with moderate aortic regurgitation, accompanied by cardiomyopathy. Patient was seen previously by cardiothoracic surgery and had declined surgery that was offered. Follow with cardiology -Persistent atrial flutter fibrillation, rate controlled Tenormin 25 mg daily at bedtime. eliquis. -Possible CK D. Creatinine 1.4 Currently on by mouth Lasix. Follow closely. -Chronic congestive heart failure from systolic dysfunction EF 30-35%. Possibly a combination of ischemic at a myopathy, severe aortic stenosis. add Aldactone 12.5 mg, Cozaar 12.5 mg daily at bedtime -BPH At Flomax 0.4 mg daily at bedtime -Essential hypertension Tenormin 25 mg daily at bedtime. -Chronic, CAD with a stent in 2013. Asymptomatic Continue aspirin. Tenormin 25 mg daily at bedtime -Hyperlipidemia Lipitor 40 mg daily at bedtime -Nonobstructive carotid artery disease bilaterally left greater than right Management antiplatelet agents. Lipitor Patient's symptoms appear to be predominantly from aortic stenosis, cardiomyopathy and underlying ischemic heart disease. Dr. DANILO Park's progressing with cardiac catheterization tomorrow. We will keep a close eye on patient's renal function. Repeat BMP in the morning. Renal ultrasound. Nephro logy consult
[2021-08-11] MEDS: ATORVASTATIN 40 MG TAB PO SCH (20:37)
[2021-08-11] MEDS: LOSARTAN 25 MG TAB PO SCH (20:38)
[2021-08-11] MEDS: SODIUM CHLORIDE 0.9% 1,000 ML in EMPTY BAG 1 BAG IV SCH (20:41)
--- NOTE | 2021-08-11 21:01 | US ---
EXAMINATION TYPE: US kidneys/renal and bladder DATE OF EXAM: 08/11/2021 COMPARISON: CT 08/10/2021 CLINICAL HISTORY: Assess for CKD. Difficult exam due to overlying bowel gas EXAM MEASUREMENTS: Right Kidney: 9.7 x 5.2 x 4.7 cm Left Kidney: 9.5 x 5.2 x 5.2 cm Right Kidney: No hydronephrosis or masses seen Left Kidney: No hydronephrosis or masses seen Bladder: Not visualized, patient has just voided IMPRESSION: No evidence of renal mass or obstruction. Urinary bladder not evaluated.
[2021-08-12 02:35] LABS: Hepatitis A Antibody IgM Nonreactive (Nonreactive); Hepatitis B Core IgM Nonreactive (Nonreactive); Hepatitis C IgG Antibody Nonreactive (Nonreactive)
[2021-08-12 03:09] LABS: Hepatitis B Surface Antigen ConfNotVal
[2021-08-12] MEDS: SODIUM CHLORIDE 0.9% 1,000 ML IV SCH (05:23)
[2021-08-12] MEDS: METOPROLOL TARTRATE 12.5 MG TAB PO SCH (05:23)
[2021-08-12 05:52] LABS: Glucose,Whole Blood 94 mg/dL (75-99)
[2021-08-12] MEDS ORDERED: ASPIRIN 325 MG TAB PO ONE (06:00)
[2021-08-12] MEDS ORDERED: HEPARIN SODIUM,PORCINE 2,500 UNIT in SODIUM CHLORIDE 0.9% 250 ML IRRIGATION PRN (07:00)
[2021-08-12] MEDS ORDERED: HEPARIN SODIUM,PORCINE 10,000 UNIT in SODIUM CHLORIDE 0.9% 1,000 ML IRRIGATION PRN (07:00)
[2021-08-12] MEDS ORDERED: .fentaNYL (PF) 50 MCG/ML 2 ML AMP ONE (07:23)
[2021-08-12] MEDS ORDERED: MIDAZOLAM 2 MG/2 ML VIAL IV ONE (07:30)
[2021-08-12] MEDS ORDERED: .fentaNYL (PF) 50 MCG/ML 2 ML AMP IV ONE (07:30)
[2021-08-12] MEDS ORDERED: IV FLUID CONTINUATION 950 ML IV ONE (07:31)
[2021-08-12] MEDS ORDERED: IV FLUID CONTINUATION 850 ML IV ONE (07:44)
[2021-08-12] MEDS ORDERED: IOPAMIDOL-370 125ML BTL INJ ONE (08:32)
[2021-08-12 08:37] LABS: O2 Sat Blood Gas 98.4 %
[2021-08-12 08:47] LABS: O2 Sat Blood Gas 61.2 %
[2021-08-12 08:54] LABS: O2 Sat Blood Gas 68.7 %
[2021-08-12 08:56] LABS: O2 Sat Blood Gas 66.4 %
[2021-08-12] MEDS: SODIUM CHLORIDE 0.9% 1,000 ML in EMPTY BAG 1 BAG IV SCH ×2 (09:00→20:27)
[2021-08-12] MEDS ORDERED: RX INFO: IV CONTRAST WAS GIVEN 1 EACH MISC MISCELLANE PRN (09:31)
[2021-08-12] MEDS: FUROSEMIDE 20 MG TAB PO SCH ×2 (09:36→15:39)
[2021-08-12] MEDS: ENOXAPARIN 80 MG/0.8 ML SYRINGE SQ SCH (09:37)
--- NOTE | 2021-08-12 09:48 | P.NPCON ---
History of Present Illness - Reason for Consult acute renal failure - History of Present Illness Reason for consultation: Acute kidney injury History of present illness: Patient is a 80-year-old male seen in renal consultation for acute kidney injury. Patient's creatinine on admission was 1.4. No other records available. Patient presented to the hospital with diaphoresis and shortness of breath. Patient has a history of coronary artery disease with stenting in the past. Patient underwent cardiac catheterization this morning without any interventions. He's currently receiving normal saline at 50 mL an hour. Echocardiogram showed ejection fraction of 30-35% with moderate aortic regurgitation. Currently denies any chest pain or shortness of breath. Denies use of nonsteroidals. He is on heparin drip. He is maintained on oral Lasix 60 mg twice daily as well. Blood pressure is well controlled. No fever or chills. No cough. Afebrile. No family history of kidney disease. No history of diabetes. Vital signs are stable. General: The patient appeared well nourished and normally developed. HEENT: Head exam is unremarkable. LUNGS: Breath sounds decreased. HEART: Rate and Rhythm are regular. ABDOMEN: Soft, no distention. EXTREMITITES: No edema. Past Medical History Past Medical History: Coronary Artery Disease (CAD), Heart Failure, Hyper lipidemia, Hypertension, Myocardial Infarction (NH) Additional Past Medical History / Comment(s): Urinary hesitancy, Enlarged prostate, Controlled A-fib, Last Myocardial Infarction Date:: 2013 History of Any Multi-Drug Resistant Organisms: None Reported Past Surgical History: Heart Catheterization With Stent Additional Past Surgical History / Comment(s): 1 stent placed in 2013, Nasal surgery Past Anesthesia/Blood Transfusion Reactions: No Reported Reaction Date of Last Stent Placement:: 2013 Past Psychological History: No Psychological Hx Reported Smoking Status: Current some day smoker Past Alcohol Use History: Occasional Past Drug Use History: None Reported - Past Family History Mother Family Medical History: Congestive Heart Failure (CHF) Father Additional Family Medical History / Comment(s): Unsure what father from Brother(s) Additional Family Medical History / Comment(s): One brother with heart murmur Medications and Allergies Home Medications Medication Instructions Recorded Confirmed Type Aspirin EC [Ecotrin Low Dose] 81 mg PO DAILY 08/10/21 08/10/21 History Atorvastatin [Lipitor] 40 mg PO HS 08/10/21 08/10/21 History Nitroglycerin Sl Tabs [Nitrostat] 0.4 mg SUBLINGUAL Q5M PRN 08/10/21 08/10/21 History atenoloL [Tenormin] 25 mg PO HS 08/10/21 08/10/21 History Allergies Allergy/AdvReac Type Severity Reaction Status Date / Time Sulfa (Sulfonamide AdvReac Rash/Hives Verified 08/10/21 07:05 Antibiotics) ticagrelor [From Brilinta] AdvReac Rash/Hives Verified 08/10/21 07:05 Physical Exam Vitals: Vital Signs Temp Pulse Pulse Resp BP Pulse Ox 08/12/21 09:30 68 16 131/58 98 08/12/21 09:15 69 17 125/75 96 08/12/21 09:00 98.1 F 78 16 123/60 98 08/12/21 03:39 98 F 68 16 121/62 95 08/11/21 23:55 84 16 109/68 98 08/11/21 20:00 98 F 64 88 16 102/65 98 08/11/21 16:00 98.1 F 64 16 123/60 94 L 08/11/21 12:00 80 16 105/60 98 Intake and Output 08/11/21 08/12/21 08/12/21 22:59 06:59 14:59 Intake Total 200 Output Total 400 Balance -400 200 Intake: IV 200 Output: Urine 400 Other: Voiding Method Toilet Toilet # Voids 1 2 # Bowel Movements 1 Weight 88.2 kg Results - Lab Results Most recent lab results Calcium 9.1 mg/dL (8.4-10.2) 08/11/21 09:52 Magnesium 2.1 mg/dL (1.6-2.3) 08/11/21 06:41 08/11/21 09:52 Assessment and Plan Plan: Assessment: 1. Acute kidney injury versus underlying chronic kidney disease. Creatinine 1.4 on admission yesterday. No other labs available. Etiology is nephrosclerosis and cardiorenal syndrome. No hydronephrosis noted on kidney ultrasound. 2. History of coronary artery disease. Underwent cardiac catheterization this morning without any intervention. 3. Hyponatremia secondary to acute kidney injury. 4. Mild metabolic acidosis secondary to acute kidney injury and IV fluids. 5. Acute systolic CHF with ejection fraction of 30-35% with moderate aortic regurgitation. Plan: Currently on normal saline at 50 mL an hour. Hep-Lock at 4 PM today. Resume oral Lasix tonight. Check urinalysis. Continue to monitor renal function and urine output. Monitor for contrast- induced acute kidney injury. Thank you for the consultation. I will continue to follow patient with you during his hospital stay.
[2021-08-12 10:49] LABS: Basophils % (A) 0 %; Eosinophils # (A) 0.1 k/uL (0-0.7); Eosinophils % (A) 1 %; HCT 36.4 % (39.0-53.0); HGB 11.8 gm/dL (13.0-17.5); Lymphocytes # (A) 1.2 k/uL (1.0-4.8); Lymphocytes % (A) 14 %; MCH 33.3 pg (25.0-35.0); MCHC 32.5 g/dL (31.0-37.0); MCV 102.2 fL (80.0-100.0); Macrocytosis Slight; Mean Platelet Volume 8.4; Monocytes # (A) 0.5 k/uL (0-1.0); Monocytes % (A) 6 %; Neutrophils # (A) 6.1 k/uL (1.3-7.7); Neutrophils % (A) 76 %; Platelet Count 189 k/uL (150-450); RBC 3.56 m/uL (4.30-5.90); RDW 13.9 % (11.5-15.5)
[2021-08-12 10:58] LABS: Calcium 8.5 mg/dL (8.4-10.2); Potassium 3.6 mmol/L (3.5-5.1)
[2021-08-12] MEDS: SPIRONOLACTONE 25 MG TAB PO SCH (11:45)
--- NOTE | 2021-08-12 12:53 | ECHOT ---
TRANSESOPHAGEAL ECHOCARDIOGRAM INDICATION: Aortic stenosis with congestive heart failure. PROCEDURE NOTE: After obtaining informed consent, transesophageal echocardiogram was performed in left lateral position using an Omni plane probe. Local and IV sedation were obtained using Xylocaine spray and intravenous Versed. Patient tolerated the procedure well without any obvious immediate complications. Patient received moderate conscious sedation and total sedation time was 10 minutes. Color Doppler 2D and M-mode evaluation along with spectral analysis has been performed. FINDINGS: 1. Aortic valve is a 3-leaflet valve that is heavily calcified, shows severe restriction in leaflet mobility with a valve area of 0.6 squared cm. There is moderate aortic regurgitation noted. Mitral valve shows mitral annular calcification with moderate mitral regurgitation. Left atrium and right atrium appear enlarged. Right ventricle appears prominent. Left ventricle has normal size and systolic function. 2. Aortic root measures within normal limits. There is no evidence of [id number] shunt by color-flow Doppler or [id number] shunt by agitated saline contrast study. CONCLUSIONS: 1. Normal LV systolic function. 2. Severe aortic stenosis. 3. Moderate mitral and aortic regurgitation. MMODL / IJN: [id number] /
[2021-08-12 14:19] LABS: Appearance,Urine Clear (Clear); Bilirubin,Urine Negative (Negative); Blood,Urine Negative (Negative); Color,Urine Light Yellow; Glucose,Urine (UA) Negative (Negative); Ketones,Urine Trace (Negative); Leukocyte Esterase,Urine Negative (Negative); Nitrite,Urine Negative (Negative); Protein,Urine Negative (Negative); Specific Gravity,Urine 1.022 (1.001-1.035); Urobilinogen,Urine <2.0 mg/dL (<2.0)
--- NOTE | 2021-08-12 14:41 | CT ---
EXAMINATION TYPE: CT facial bones wo con DATE OF EXAM: 08/12/2021 COMPARISON: None HISTORY: preop valve surgery CT DLP: 718.1 mGycm Automated exposure control for dose reduction was used. Contrast: None Technique: Axial images 2 mm thick sections. Reconstructed images in coronal plane. Panorex CT mandib le was obtained. FINDINGS: No acute fractures are evident. There is right septal deviation. Ostiomeatal units are patent. Small retention cysts within the left sphenoid sinus. Mild mucosal thickening is within the right maxillary sinus. Remaining paranasal sinuses are clear. There are advanced degenerative changes noted within the visualized upper cervical spine. There may be fluid through the right mastoid air cells. Correlate for acute right mastoiditis. IMPRESSION: 1. CLINICAL CORRELATION RECOMMENDED FOR RIGHT MASTOIDITIS. 2. NO ACUTE OSSEOUS ABNORMALITY EVIDENT. 3. SMALL RETENTION CYST WITHIN THE LEFT SPHENOID SINUS. MILD MUCOSAL THICKENING WITHIN THE RIGHT MAXI LLARY SINUS.
--- NOTE | 2021-08-12 16:06 | CC ---
CARDIAC CATHETERIZATION REPORT INDICATION: 1. Aortic stenosis. 2. Coronary artery disease, status post prior angioplasty. The patient underwent right and left heart catheterization to evaluate the hemodynamics for his aortic stenosis and to rule out underlying coronary artery disease. The plan is to refer him for TAVR. PROCEDURE NOTE: After obtaining informed consent, right and left heart catheterizations are performed via the right femoral artery and vein, and the procedure was completed using standard catheters. The patient tolerated the procedure well without any obvious immediate complications. A femoral angiogram was performed and Angio-Seal was deployed for hemostasis. Patient received moderate conscious sedation. Total sedation time was 40 minutes. FINDINGS: RIGHT HEART CATHETERIZATION: The cardiac output by Amanda method is 6.3 L. The saturation run showed that the femoral arterial saturation is 98%. PA is 61%, RA is 68%. Pulmonary arterial systolic pressure is 60 mm while the diastolic pressure is 33 mm with a mean pressure of 40 mm. RV systolic pressure is 62 mm, diastolic pressure is 12 mm. Mean right atrial pressure is 13 mm. I could not obtain a wedge. LEFT HEART CATHETERIZATION: Hemodynamics. Left ventricular end-diastolic pressure is not obtained. Left ventriculogram is not performed. ANGIOGRAPHIC DATA: Left main coronary artery. Left main coronary artery appears calcified but is free of stenosis. It divides into left anterior descending coronary artery and circumflex coronary artery. LAD appears calcified. There is a moderate atherosclerotic plaque involving proximal and mid portions without focal hemodynamically significant lesions. Circumflex coronary artery is a small nondominant vessel. Right coronary artery is a large dominant vessel and was previously stented. The stents appeared patent. There is mild nonobstructive disease noted. CONCLUSIONS: 1. Evidence of pulmonary hypertension with cardiac output of about 6.3 L by Amanda method. 2. Patent stents within the right coronary artery with mild to moderate nonobstructive disease involving LAD and circumflex coronary artery. PLAN: The patient will need and would benefit from aortic valve replacement. MMODL / IJN: [id number] /
[2021-08-12 16:20] LABS: Chol/HDL Ratio 2.31 Ratio; HDL Cholesterol 37.7 mg/dL (40.00-60.00); LDL Cholesterol,Calculated 34.2 mg/dL (0.0-131.0); Triglycerides 75.1 mg/dL (0.00-149.00); VLDL Calculation 15.02 mg/dL (5.00-40.00)
[2021-08-12 17:50] LABS: Carcinoembryonic Antigen 2.5 ng/mL (0.0-4.9)
[2021-08-12 17:58] LABS: Alpha Fetoprotein, Tumor Mkr <1.82 ng/mL (0.00-7.90)
--- NOTE | 2021-08-12 20:03 | P.PN ---
Progress Note - Text Progress Note Date: 08/12/21 Chief Complaint: Short of breath History of presenting complaint: This is a pleasant 80-year-old patient Dr. Paz. Chronic stable medical conditions include hyperlipidemia, BPH, hypertension, CAD with stent, atrial flutter fibrillation. Patient presented to [facility] for very was transferred here. Patient stated his shortness of breath has been present for close six-month to one-year and progressively getting worse. No edema. Of recent increase got a cough with some white phlegm. Also has been losing weight. Patient was negative for COVID-19/influenza A and B. No fever no chills. Feels tired and rundown. Computed tomography scan and other place was negative for PE. Did show some pleural effusion. Patient felt to have angina equivalent from severe aortic stenosis., Underlying CAD, cardiomyopathy. Patient did receive IV Lasix yesterday. August 11: Sitting up in bed. Tired. Seen by Dr. DANILO Park from cardiology. On by mouth Lasix. Plan is for cardiac catheterization tomorrow. On IV heparin. Patient has previously followed with cardiothoracic surgery and had declined surgery in the past. Patient has several questions about the same. I did discuss with him in broad terms. August 12: Patient underwent cardiac catheterization by Dr. Cole Mcrae today. Found to have significant disease with calcification. But no critical stenosis. Decision was made for medical management. Patient has accepted to follow up with cardiothoracic surgery as outpatient for TAVR. Nephrology started the patient on saline at 50 mL an hour. Review of systems: Was done for constitutional, cardiovascular, GI, pulmonary. relevant finding as above Active Medications Alprazolam (Alprazolam 0.25 Mg Tab) 0.25 mg PO Q6HR PRN PRN Reason: Mild Anxiety Alprazolam (Alprazolam 0.5 Mg Tab) 0.5 mg PO Q6HR PRN PRN Reason: Moderate Anxiety Apixaban (Apixaban 2.5 Mg Tablet) 2.5 mg PO BID [facility]; Protocol Atorvastatin Calcium (Atorvastatin 40 Mg Tab) 40 mg PO HS [facility] Last Admin: 08/11/21 20:37 Dose: 40 mg Documented by: Furosemide (Furosemide 20 Mg Tab) 60 mg PO BID@0900,1600 [facility] Last Admin: 08/12/21 15:39 Dose: 60 mg Documented by: Sodium Chloride (Saline 0.9%) 1,000 mls @ 20 mls/hr IV .Q24H [facility] Last Admin: 08/12/21 05:23 Dose: Not Given Documented by: Sodium Chloride 1,000 ml/ IV (Solution) 1,000 mls @ 90.1 mls/hr IV .Q11H6M [facility] Last Admin: 08/12/21 09:00 Dose: 90.1 mls/hr Documented by: Heparin Sodium (Porcine) 10, (000 unit/ Sodium Chloride) 1,001 mls @ 999 mls/hr IRRIGATION ONCE PRN PRN Reason: INTRA-OP Stop: 08/12/21 23:00 Heparin Sodium (Porcine) 2,500 (unit/ Sodium Chloride) 250.5 mls @ 250 mls/hr IRRIGATION ONCE PRN PRN Reason: INTRA-OP Stop: 08/12/21 23:00 Losartan Potassium (Losartan 25 Mg Tab) 25 mg PO HS [facility] Last Admin: 08/11/21 20:38 Dose: 25 mg Documented by: Metoprolol Tartrate (Metoprolol Tartrate 12.5 Mg Tab) 12.5 mg PO DAILY [facility] Last Admin: 08/12/21 05:23 Dose: 12.5 mg Documented by: Miscellaneous Information (Rx Info: Iv Contrast Was Given 1 Each Misc) 1 each MISCELLANE DAILY PRN PRN Reason: Per Protocol Stop: 08/14/21 09:32 Nitroglycerin (Nitroglycerin Sl Tabs 0.4 Mg Tab) 0.4 mg SUBLINGUAL Q5M PRN PRN Reason: Chest Pain Spironolactone (Spironolactone 25 Mg Tab) 12.5 mg PO DAILY [facility] Last Admin: 08/12/21 11:45 Dose: 12.5 mg Documented by: Past medical history to include: Hyperlipidemia, BPH, hypertension, CAD with a stent in 2014, atrial fibrillation Social history: Patient smokes cigars occasionally. . Used to local city [facility]. Her diet. Alcohol occasionally. Family history: Reviewed, known cardiac presentation Physical examination: VITAL SIGNS: Afebrile, 73, 18, 1 35 x 75, 98% on room air GENERAL: Reclining in bed, awake, tired EYES: Pupils equal. Conjunctiva normal.. NECK: JVD not raised; masses not palpable. HEART: First and second heart sounds are normal; no edema. Systolic murmur in aortic area LUNGS: Respiratory rate increased, decreased breath sounds. ABDOMEN: Soft, nontender, liver spleen not palpable, no masses palpable. PSYCH: Alert and oriented x3; mood and affect normal. MUSCULAR skeletal: Evidence of OA INVESTIGATIONS, reviewed in the clinical context: August 12: White count 8 hemoglobin 11.8 platelets 189 potassium 3.6 BUN 29 creatinine 1.37 Cardiac catheterization: Showing significant calcification. No critical stenosis. August 11: Sodium 132 potassium 4.5 BUN 32 creatinine 1.40 Computed tomography scan of abdomen pelvis: Some chronic changes Carotid Doppler: 50% stenosis in the right common internal carotid artery. 50- 70% stenosis with left common and internal carotid artery. Troponin I 0.026, 0.034. EKG tracing personally reviewed by me-atrial flutter fibrillation with a controlled ventricular rate nonspecific ST segment changes Chest x-ray film personally reviewed by me-no infiltrates, cardiomegaly 2-D echocardiogram: EF 30-35% moderate aortic regurgitation severe aortic stenosis Investigations from [facility]: Troponin 0.047, COVID-19/influenza A/influenza B: All negative WBC 9.8 hemoglobin 13.1 platelets 199 sodium 135 potassium 5.1 BUN 23 creatinine 1.3 Computed tomography scan of the chest shows cardiomegaly, pleural effusion n egative for PE. Assessment and plan: -Possible angina eqivalent/short of breath from severe aortic stenosis, cardiomyopathy, and underlying ischemic heart disease: Follow with cardiology -COPD in a light cigar smoker DuoNeb -Severe aortic stenosis with moderate aortic regurgitation, accompanied by cardiomyopathy. Patient was seen previously by cardiothoracic surgery and had declined surgery that was offered. Patient follow with cardiothoracic surgery as outpatient for TAVR -Persistent atrial flutter fibrillation, rate controlled Lopressor 12.5 by mouth daily. eliquis 2.5 mg twice a day. -Possible CK D. stage III from nephrosclerosis Creatinine 1.4 Lasix 60 mg twice a day. Follow closely. -Acute on Chronic congestive heart failure from systolic dysfunction EF 30-35%. Possibly a combination of ischemic cardio myopathy, severe aortic stenosis. Aldactone 12.5 mg, Cozaar 12.5 mg daily at bedtime. Lasix 60 mg twice a day -BPH At Flomax 0.4 mg daily at bedtime -Essential hypertension Lopressor 12.5 by mouth daily, Cozaar 25 mg daily at bedtime -Chronic, CAD with a stent in 2013. Asymptomatic Continue aspirin. Presently 12.5 mg daily -Hyperlipidemia Lipitor 40 mg daily at bedtime -Nonobstructive carotid artery disease bilaterally left greater than right Management antiplatelet agents. Lipitor Continue current medication treatment plan. Repeat renal function the morning. director of casework services help the patient with transport with follow-up appointments. Saline at 50 mL an hour. Repeat labs. Care was discussed with the patient. Cardiothoracic team. The patient about follow-up.
[2021-08-12] MEDS: APIXABAN 2.5 MG TABLET PO SCH (20:26)
[2021-08-12] MEDS: ATORVASTATIN 40 MG TAB PO SCH (20:26)
[2021-08-12] MEDS: LOSARTAN 25 MG TAB PO SCH (20:26)
--- NOTE | 2021-08-13 08:52 | P.GSCN ---
History of Present Illness Consult date: 08/12/21 Reason for Consult: Dental Clearance Past Medical History Past Medical History: Coronary Artery Disease (CAD), Heart Failure, Hype rlipidemia, Hypertension, Myocardial Infarction (HI) Additional Past Medical History / Comment(s): Urinary hesitancy, Enlarged prostate, Controlled A-fib, Last Myocardial Infarction Date:: 2013 History of Any Multi-Drug Resistant Organisms: None Reported Past Surgical History: Heart Catheterization With Stent Additional Past Surgical History / Comment(s): 1 stent placed in 2013, Nasal surgery Past Anesthesia/Blood Transfusion Reactions: No Reported Reaction Date of Last Stent Placement:: 2013 Past Psychological History: No Psychological Hx Reported Smoking Status: Current some day smoker Past Alcohol Use History: Occasional Past Drug Use History: None Reported - Past Family History Mother Family Medical History: Congestive Heart Failure (CHF) Father Additional Family Medical History / Comment(s): Unsure what father from Brother(s) Additional Family Medical History / Comment(s): One brother with heart murmur Medications and Allergies Home Medications Medication Instructions Recorded Confirmed Type Aspirin EC [Ecotrin Low Dose] 81 mg PO DAILY 08/10/21 08/10/21 History Atorvastatin [Lipitor] 40 mg PO HS 08/10/21 08/10/21 History Nitroglycerin Sl Tabs [Nitrostat] 0.4 mg SUBLINGUAL Q5M PRN 08/10/21 08/10/21 History atenoloL [Tenormin] 25 mg PO HS 08/10/21 08/10/21 History Allergies Allergy/AdvReac Type Severity Reaction Status Date / Time Sulfa (Sulfonamide AdvReac Rash/Hives Verified 08/10/21 07:05 Antibiotics) ticagrelor [From Brilinta] AdvReac Rash/Hives Verified 08/10/21 07:05 Surgical - Exam Vital Signs Temp Pulse Resp BP Pulse Ox 97.9 F 76 18 129/91 97 08/10/21 02:21 08/10/21 02:21 08/10/21 02:21 08/10/21 02:21 08/10/21 02:21 Examination revealed edentulous maxillary ridge. no intra/extraoral swelling or infection. Patient may have caries present on lower teeth. Recommend patient see regular dentist after discharge from hospital. Results Pt has no detected intra/extraoral infection/swelling. No dental contraindications for surgery. Patient is cleared dentally for any surgeries. Recommend pt to see dentist after discharge from hospital for new upper denture and dental prophylaxis and possible caries on mandibular arch. - Labs 08/12/21 10:29 08/12/21 10:29 Abnormal Lab Results - Last 24 Hours (Table) 08/11/21 08/12/21 08/12/21 Range/Units 06:41 10:29 10:29 RBC 3.56 L (4.30-5.90) m/uL Hgb 11.8 L (13.0-17.5) gm/dL Hct 36.4 L (39.0-53.0) % MCV 102.2 H (80.0-100.0) fL Sodium 135 L (137-145) mmol/L Carbon Dioxide 21 L (22-30) mmol/L BUN 29 H (9-20) mg/dL Creatinine 1.37 H (0.66-1.25) mg/dL HDL Cholesterol 37.70 L (40.00-60.00) mg/dL Urine Ketones (Negative) 08/12/21 Range/Units 14:05 RBC (4.30-5.90) m/uL Hgb (13.0-17.5) gm/dL Hct (39.0-53.0) % MCV (80.0-100.0) fL Sodium (137-145) mmol/L Carbon Dioxide (22-30) mmol/L BUN (9-20) mg/dL Creatinine (0.66-1.25) mg/dL HDL Cholesterol (40.00-60.00) mg/dL Urine Ketones Trace H (Negative) Diabetes panel 08/11/21 08/12/21 Range/Units 06:41 10:29 Sodium 135 L (137-145) mmol/L Potassium 3.6 (3.5-5.1) mmol/L Chloride 102 (98-107) mmol/L Carbon Dioxide 21 L (22-30) mmol/L BUN 29 H (9-20) mg/dL Creatinine 1.37 H (0.66-1.25) mg/dL Glucose 97 (74-99) mg/dL Calcium 8.5 (8.4-10.2) mg/dL Triglycerides 75.10 (0.00-149.00) mg/dL HDL Cholesterol 37.70 L (40.00-60.00) mg/dL Calcium panel 08/12/21 Range/Units 10:29 Calcium 8.5 (8.4-10.2) mg/dL Pituitary panel 08/12/21 Range/Units 10:29 Sodium 135 L (137-145) mmol/L Potassium 3.6 (3.5-5.1) mmol/L Chloride 102 (98-107) mmol/L Carbon Dioxide 21 L (22-30) mmol/L BUN 29 H (9-20) mg/dL Creatinine 1.37 H (0.66-1.25) mg/dL Glucose 97 (74-99) mg/dL Calcium 8.5 (8.4-10.2) mg/dL Adrenal panel 08/12/21 Range/Units 10:29 Sodium 135 L (137-145) mmol/L Potassium 3.6 (3.5-5.1) mmol/L Chloride 102 (98-107) mmol/L Carbon Dioxide 21 L (22-30) mmol/L BUN 29 H (9-20) mg/dL Creatinine 1.37 H (0.66-1.25) mg/dL Glucose 97 (74-99) mg/dL Calcium 8.5 (8.4-10.2) mg/dL
[2021-08-13 09:04] LABS: Calcium 8.9 mg/dL (8.4-10.2); Magnesium 2.1 mg/dL (1.6-2.3)
[2021-08-13] MEDS: FUROSEMIDE 20 MG TAB PO SCH (09:44)
[2021-08-13] MEDS: METOPROLOL TARTRATE 12.5 MG TAB PO SCH (09:44)
[2021-08-13] MEDS: SPIRONOLACTONE 25 MG TAB PO SCH (09:44)
[2021-08-13] MEDS: APIXABAN 2.5 MG TABLET PO SCH (09:44)
--- NOTE | 2021-08-13 10:52 | P.PN ---
Subjective Patient is seen in follow-up for acute kidney injury. Unknown baseline renal function. Creatinine is trending down. No vomiting or diarrhea. No chest pain or shortness of breath. Feels weak. Vital signs are stable. General: The patient appeared well nourished and normally developed. HEENT: Head exam is unremarkable. LUNGS: Breath sounds decreased. HEART: Rate and Rhythm are regular. ABDOMEN: Soft, no distention. EXTREMITITES: No edema. Objective - Vital Signs Vital signs: Vital Signs Temp 98.2 F 08/13/21 08:17 Pulse 71 08/13/21 08:17 Resp 24 08/13/21 08:17 BP 115/57 08/13/21 08:17 Pulse Ox 96 08/13/21 08:17 Intake & Output 08/12/21 08/13/21 08/13/21 18:59 06:59 18:59 Intake Total 440 380 Output Total 450 180 200 Balance -10 -180 180 Weight 88.4 kg Intake: IV 200 Oral 240 380 Output: Urine 450 180 200 Other: Voiding Method Toilet Toilet # Voids 1 # Bowel Movements 1 - Labs CBC & Chem 7: 08/12/21 10:29 08/13/21 07:39 Labs: Abnormal Lab Results - Last 24 Hours (Table) 08/11/21 08/12/21 08/12/21 Range/Units 06:41 10:29 10:29 RBC 3.56 L (4.30-5.90) m/uL Hgb 11.8 L (13.0-17.5) gm/dL Hct 36.4 L (39.0-53.0) % MCV 102.2 H (80.0-100.0) fL Sodium 135 L (137-145) mmol/L Carbon Dioxide 21 L (22-30) mmol/L BUN 29 H (9-20) mg/dL Creatinine 1.37 H (0.66-1.25) mg/dL HDL Cholesterol 37.70 L (40.00-60.00) mg/dL Urine Ketones (Negative) 08/12/21 08/13/21 Range/Units 14:05 07:39 RBC (4.30-5.90) m/uL Hgb (13.0-17.5) gm/dL Hct (39.0-53.0) % MCV (80.0-100.0) fL Sodium (137-145) mmol/L Carbon Dioxide 19 L (22-30) mmol/L BUN 24 H (9-20) mg/dL Creatinine (0.66-1.25) mg/dL HDL Cholesterol (40.00-60.00) mg/dL Urine Ketones Trace H (Negative) Assessment and Plan Plan: Assessment: 1. Acute kidney injury versus underlying chronic kidney disease. Creatinine 1.4 on admission - 1.18 today. No other labs available. Etiology is nephrosclerosis and cardiorenal syndrome. No hydronephrosis noted on kidney ultrasound. UA benign. 2. History of coronary artery disease. Underwent cardiac catheterization on Se ptember 29 without any intervention. 3. Hyponatremia secondary to acute kidney injury. Better. 4. Metabolic acidosis secondary to acute kidney injury and IV fluids. 5. Acute systolic CHF with ejection fraction of 30-35% with aortic stenosis/aortic regurgitation. Plan: Maintain oral Lasix. Continue to monitor renal function and urine output. Monitor for contrast- induced acute kidney injury.
--- NOTE | 2021-08-13 11:51 | PN ---
PROGRESS NOTE This gentleman has ischemic heart disease with aortic stenosis and decreased ejection fraction. Transthoracic echo revealed ejection fraction of about 35%, but transesophageal echo revealed decent LV function, severe aortic stenosis. Cardiac catheterization revealed that previously stented RCA was patent and LAD had moderate disease. The patient will have percutaneous aortic valve implant. Workup has been in progress. He will be discharged today and has an appointment for a TAVR CT to be performed and also follow up with Dr. Paulino. I reviewed his medications. We will continue the same and he will be discharged today. Vitals are stable. No JVD. S1-S2 heard normally. Ejection systolic murmur at the base is audible. Second heart sound is fairly well preserved. Lungs reveal decent air entry. Abdomen is soft, nontender. Lower extremities reveal normal pulses. No edema. Right groin is clean and dry. IMPRESSION: 1. Coronary artery disease with patent vessels. 2. History of heart failure. 3. Improved left ventricular function. 4. Severe aortic stenosis. RECOMMENDATIONS: Recommendations would be to discharge the patient today for TAVR placement, and he will be seen in the [facility] shortly after workup. MMODL / IJN: [id number] /
[2021-08-13 11:56] VITALS: BP 112/65; PULSE 73; RESP 18; TEMP 97.9
--- NOTE | 2021-08-13 17:04 | P.DS ---
Providers Date of admission: 08/10/21 02:35 Expected date of discharge: 08/13/21 Attending physician: Erick Ruelas Consults: 08/10/21 02:35 Consult Physician Urgent Consulting Provider: Mis Anne Consult Reason/Comments: cp,chf Do you want consulting provider notified?: Yes 08/10/21 14:08 Consult Physician Routine Consulting Provider: Edilberto Haines Consult Reason/Comments: severe Do you want consulting provider notified?: Yes 08/11/21 19:15 Consult Physician Routine Consulting Provider: Jonathan Landeros Consult Reason/Comments: Renal failure Do you want consulting provider notified?: Yes 08/12/21 13:38 Consult Physician Routine Consulting Provider: Kinjal Higginbotham Consult Reason/Comments: valve surgery clearance Do you want consulting provider notified?: Already Contacted Primary care physician: [facility] Course: Chief Complaint: Short of breath History of presenting complaint: This is a pleasant 80-year-old patient Dr. Paz. Chronic stable medical conditions include hyperlipidemia, BPH, hypertension, CAD with stent, atrial flutter fibrillation. Patient presented to [facility] for very was t ransferred here. Patient stated his shortness of breath has been present for close six-month to one-year and progressively getting worse. No edema. Of recent increase got a cough with some white phlegm. Also has been losing weight. Patient was negative for COVID-19/influenza A and B. No fever no chills. Feels tired and rundown. Computed tomography scan and other place was negative for PE. Did show some pleural effusion. Patient felt to have angina equivalent from severe aortic stenosis., Underlying CAD, cardiomyopathy. Patient did receive IV Lasix yesterday. August 11: Sitting up in bed. Tired. Seen by Dr. DANILO Park from cardiology. On by mouth Lasix. Plan is for cardiac catheterization tomorrow. On IV heparin. Patient has previously followed with cardiothoracic surgery and had declined surgery in the past. Patient has several questions about the same. I did discuss with him in broad terms. August 12: Patient underwent cardiac catheterization by Dr. Cole Mcrae today. Found to have significant disease with calcification. But no critical stenosis. Decision was made for medical management. Patient has accepted to follow up with cardiothoracic surgery as outpatient for TAVR. Nephrology started the patient on saline at 50 mL an hour. August 13: Patient more comfortable. Renal function is stable. Patient is to follow-up with cardiology. salary manager was involved with transport. Consultation: Dr. DANILO Park from cardiology Dr. Landeros from nephrology Dr. Long from cardiothoracic surgery jerald Duenas: For preop dental clearance Past medical history to include: Hyperlipidemia, BPH, hypertension, CAD with a stent in 2014, atrial fibrillation Social history: Patient smokes cigars occasionally. . Used to local city [facility]. Her diet. Alcohol occasionally. Family history: Reviewed, known cardiac presentation Physical examination: VITAL SIGNS: 97.9, 73, 18, 112/65, 92% on room air GENERAL: Reclining in bed, awake, comfortable EYES: Pupils equal. Conjunctiva normal.. NECK: JVD not raised; masses not palpable. HEART: First and second heart sounds are normal; no edema. Systolic murmur in aortic area LUNGS: Respiratory rate increased, decreased breath sounds. ABDOMEN: Soft, nontender, liver spleen not palpable, no masses palpable. PSYCH: Alert and oriented x3; mood and affect normal. MUSCULAR skeletal: Evidence of OA INVESTIGATIONS, reviewed in the clinical context: Face CT: Nonspecific findings. August 13: Potassium 4 creatinine 1.16 August 12: White count 8 hemoglobin 11.8 platelets 189 potassium 3.6 BUN 29 creatinine 1.37 Cardiac catheterization: Evidence of pulmonary hypertension. Patent stents. With nonobstructive disease.. VAL: Normal LV systolic function. Severe aortic stenosis. Moderate mitral and aortic regurgitation. Aortic valve area 0.6 cm August 11: Sodium 132 potassium 4.5 BUN 32 creatinine 1.40 Renal ultrasound: Unremarkable Computed tomography scan of abdomen pelvis: Some chronic changes Carotid Doppler: 50% stenosis in the right common internal carotid artery. 50- 70% stenosis with left common and internal carotid artery. Troponin I 0.026, 0.034. EKG tracing personally reviewed by me-atrial flutter fibrillation with a controlled ventricular rate nonspecific ST segment changes Chest x-ray film personally reviewed by me-no infiltrates, cardiomegaly 2-D echocardiogram: EF 30-35% moderate aortic regurgitation severe aortic stenosis Investigations from [facility]: Troponin 0.047, COVID-19/influenza A/influenza B: All negative WBC 9.8 hemoglobin 13.1 platelets 199 sodium 135 potassium 5.1 BUN 23 creatinine 1.3 Computed tomography scan of the chest shows cardiomegaly, pleural effusion negative for PE. Assessment and plan: -Possible angina eqivalent/short of breath from severe aortic stenosis, cardiomyopathy, and underlying ischemic heart disease: Follow with cardiology -COPD in a light cigar smoker DuoNeb -Severe aortic stenosis with moderate aortic regurgitation, accompanied by cardiomyopathy. Patient was seen previously by cardiothoracic surgery and had declined surgery that was offered. Patient follow with cardiothoracic surgery as outpatient for TAVR -Persistent atrial flutter fibrillation, rate controlled Lopressor 12.5 by mouth daily. eliquis 2.5 mg twice a day. -Possible CK D. stage III from nephrosclerosis Creatinine 1.4 Lasix 40 mg twice a day. -Acute on Chronic congestive heart failure from systolic dysfunction EF 30-35%. Possibly a combination of ischemic cardio myopathy, severe aortic stenosis. Aldactone 12.5 mg, Cozaar 25 mg daily at bedtime. Lasix 40 mg twice a day -BPH Flomax 0.4 mg daily at bedtime -Essential hypertension Lopressor 12.5 by mouth daily, Cozaar 25 mg daily at bedtime -Chronic, CAD with a stent in 2013. Asymptomatic Continue aspirin. Presently 12.5 mg daily -Hyperlipidemia Lipitor 40 mg daily at bedtime -Nonobstructive carotid artery disease bilaterally left greater than right Management antiplatelet agents. Lipitor Plan - Discharge Summary Discharge Rx Participant: No New Discharge Prescriptions: New Apixaban [Eliquis] 2.5 mg PO BID #60 tablet Spironolactone [Aldactone] 12.5 mg PO DAILY #30 tab Losartan [Cozaar] 25 mg PO HS #30 tab Furosemide [Lasix] 40 mg PO BID@0900,1600 #120 tab Metoprolol Tartrate [Lopressor] 12.5 mg PO DAILY #30 tab Continue Nitroglycerin Sl Tabs [Nitrostat] 0.4 mg SUBLINGUAL Q5M PRN PRN Reason: Chest Pain Atorvastatin [Lipitor] 40 mg PO HS Discontinued Aspirin EC [Ecotrin Low Dose] 81 mg PO DAILY atenoloL [Tenormin] 25 mg PO HS Discharge Medication List Atorvastatin [Lipitor] 40 mg PO HS 08/10/21 [History] Nitroglycerin Sl Tabs [Nitrostat] 0.4 mg SUBLINGUAL Q5M PRN 08/10/21 [History] Apixaban [Eliquis] 2.5 mg PO BID #60 tablet 08/13/21 [Rx] Furosemide [Lasix] 40 mg PO BID@0900,1600 #120 tab 08/13/21 [Rx] Losartan [Cozaar] 25 mg PO HS #30 tab 08/13/21 [Rx] Metoprolol Tartrate [Lopressor] 12.5 mg PO DAILY #30 tab 08/13/21 [Rx] Spironolactone [Aldactone] 12.5 mg PO DAILY #30 tab 08/13/21 [Rx] Follow up Appointment(s)/Referral(s): Edilberto Haines MD [STAFF PHYSICIAN] - As Needed (We will contact you to follow up in the valve clinic after discharge) Edilberto Paz MD [Primary Care Provider] - 08/17/21 9:00 am Manish Paulino MD [STAFF PHYSICIAN] - 08/21/21 3:00 pm ([place] office) Patient Instructions/Handouts: *Surgery [facility] - After Heart Catheterization - Ultrasound Tech Instructions, Heart Failure (DC), Aortic Stenosis (DC) Activity/Diet/Wound Care/Special Instructions: bmp - 5 days Discharge Disposition: HOME SELF-CARE
== END 2021-08-13 14:42 | disposition home or self-care (01) ==
LOC: EC 02:09 → 3SCARD 02:35 → INTOOBSV 02:35 → 3SCARD 16:57 → UNDODISIN 08-13 14:42
PROVIDERS: ADMIT Hospitalist; ATTEND Hospitalist
DX: I35.2 Nonrheumatic aortic (valve) stenosis with insufficiency (principal); I13.0 Hypertensive heart and chronic kidney disease with heart failure and stage 1 through stage 4 chronic kidney disease, or unspecified chronic kidney disease; I50.23 Acute on chronic systolic (congestive) heart failure; I48.92 Unspecified atrial flutter; I48.19 Other persistent atrial fibrillation; E78.5 Hyperlipidemia, unspecified; N40.0 Benign prostatic hyperplasia without lower urinary tract symptoms; I25.10 Atherosclerotic heart disease of native coronary artery without angina pectoris; I42.9 Cardiomyopathy, unspecified; I27.20 Pulmonary hypertension, unspecified; I65.23 Occlusion and stenosis of bilateral carotid arteries; E87.1 Hypo-osmolality and hyponatremia; E87.2 Acidosis; J44.9 Chronic obstructive pulmonary disease, unspecified; Z95.1 Presence of aortocoronary bypass graft; Z20.822 Contact with and (suspected) exposure to COVID-19; F17.290 Nicotine dependence, other tobacco product, uncomplicated; F17.210 Nicotine dependence, cigarettes, uncomplicated; R63.4 Abnormal weight loss; R39.11 Hesitancy of micturition; I25.2 Old myocardial infarction; R07.89 Other chest pain; R61 Generalized hyperhidrosis; R10.9 Unspecified abdominal pain; R19.7 Diarrhea, unspecified; E66.9 Obesity, unspecified; Z68.30 Body mass index [BMI] 30.0-30.9, adult; N17.9 Acute kidney failure, unspecified; N18.9 Chronic kidney disease, unspecified; Z79.01 Long term (current) use of anticoagulants; Z79.82 Long term (current) use of aspirin; Z79.899 Other long term (current) drug therapy; Z88.2 Allergy status to sulfonamides; Z88.8 Allergy status to other drugs, medicaments and biological substances; Z95.5 Presence of coronary angioplasty implant and graft; Z82.49 Family history of ischemic heart disease and other diseases of the circulatory system
CPT/HCPCS: 96372; 96365; 96366; 99285; 94760; 94150; 93005; 93312; 93320; 93325; 93460; 83880; 80061; 80048 ×3; 80074; 85018; 84443; 82378; 82810; 83735 ×2; 84132; 84484; 85025; 85730; 81003; 82105; 83036; 71046; 76770; 93880; 70486; 74177; G0378 ×4; C8929; C1769 ×3; C1760; C1894 ×2; J2250; J3010; J1650; Q9950; Q9967 ×2; J1644; 93306

== ENCOUNTER 2021-08-25 06:13 | Outpatient (CLI) | payer MEDICARE ==
--- NOTE | 2021-08-25 12:45 | CT ---
EXAMINATION TYPE: CT TAVR Planning DATE OF EXAM: 08/25/2021 HISTORY: Pre Procedural planning. CT DLP: 1742.1 mGycm Automated Exposure Control for Dose Reduction was Utilized. CONTRAST: CT scan of the chest, abdomen and pelvis is performed with IV Contrast, patient injected with 125 mL of Isovue 370. COMPARISON: CT abdomen and pelvis August 10, 2021 TECHNIQUE: Helical imaging obtained through the chest, abdomen and pelvis during arterial phase romaine dianne administration of radiographic contrast intravenously. FINDINGS: See report from [employer] regarding preprocedural planning CHEST: Lower Neck and Thyroid: No significant findings Lungs: Dependent atelectasis in the bases left greater than right Central Airway: No significant findings Pleura: No significant findings Pulmonary Arteries: No significant findings Heart and Pericardium: Mild cardiomegaly. Calcification level of the mitral and aortic valve. Coronar y artery calcification is present. Ascending aorta measures up to 4.1 cm in diameter. Lymph Nodes: Prominent but subcentimeter pericarinal lymph node axial image 24. Mediastinum & Esophagus: No significant findings Other: Asymmetric left-sided flame-shaped gynecomastia is felt present. ABDOMEN/PELVIS: Please note arterial phase of the imaging limits detailed evaluation of the solid abdominal organs. Liver: No significant findings Spleen: No significant findings Kidneys: No significant findings Adrenal Glands: No significant findings Pancreas: No significant findings Gallbladder: No significant findings Bowel and Mesentery: Few scattered air-fluid levels, nonspecific finding. No suspicious bowel dilatat ion. Lymph Nodes: No significant findings Urinary Bladder: No significant findings Pelvic Organs: No significant findings Other: Ectatic and atherosclerotic abdominal aorta with aneurysm up to 3.4 cm AP diameter axial image 75. Osseous structures: Levoconvex scoliosis centered at L2 level. Severe disc space narrowing right L2- L3 level with spurring and sclerosis. Moderate disc space narrowing L3-L4 and L4-L5 levels. Vacuum di sc phenomenon at these levels. Moderate disc space narrowing T9-T10 level. IMPRESSION: No suspicious incidental finding to prevent aortic valve surgery.
== END 2021-08-25 14:40 | disposition home or self-care (01) ==
LOC: RADCTMAIN 06:13
PROVIDERS: ATTEND Thoracic Surgery (Cardiothoracic Vascular Surgery)
DX: Z01.818 Encounter for other preprocedural examination (principal); I25.10 Atherosclerotic heart disease of native coronary artery without angina pectoris; I51.7 Cardiomegaly
CPT/HCPCS: 87635; 71275; 74174; Q9967

== ENCOUNTER → 2021-09-07 | Outpatient (CLI) | payer MEDICARE ==
[2021-09-07 13:01] LABS: Prothrombin Time 10.9 sec (9.0-12.0)
== END | disposition home or self-care (01) ==
LOC: LABPAT 11:18
PROVIDERS: ATTEND Thoracic Surgery (Cardiothoracic Vascular Surgery)
DX: Z01.818 Encounter for other preprocedural examination (principal); I35.0 Nonrheumatic aortic (valve) stenosis; I48.91 Unspecified atrial fibrillation; I45.10 Unspecified right bundle-branch block; R94.31 Abnormal electrocardiogram [ECG] [EKG]
CPT/HCPCS: 36415; 85610; 93005

== ENCOUNTER 2021-09-09 06:30 | Inpatient (IN) | payer MEDICARE ==
[~2021-09-09 06:30] MED LIST: ASPIRIN 325 MG TAB PO ONE; ATORVASTATIN 10 MG TAB PO ONE; CLEVIDIPINE BUTYRATE 25 MG in EMPTY BAG 1 BAG IV PRN; CLOPIDOGREL 75 MG TAB PO ONE; ELECTROLYTE-A SOLUTION 1,000 ML with POTASSIUM CHLORIDE 100 MEQ, MAGNESIUM SULFATE 16 M... IV PRN; INSULIN REGULAR 100 UNIT in SODIUM CHLORIDE 0.9% 100 ML IV PRN; LACTATED RINGERS 1,000 ML IV SCH; MD COMMUNICATION TO PHARMACY 1 EACH MISC PO ONE; METOPROLOL TARTRATE 25 MG TAB PO ONE; NITROGLYCERIN-D5W PMX 25 MG/250 ML BTL IV PRN; PROTAMINE SULFATE 250 MG in EMPTY BAG 1 BAG IV PRN; TRANEXAMIC ACID 2,000 MG in SODIUM CHLORIDE 0.9% 80 ML IV PRN
[2021-09-09 07:08] LABS: Glucose,Whole Blood 103 mg/dL (75-99)
[2021-09-09] MEDS ORDERED: SODIUM CHLORIDE 0.9% 1,000 ML IV ONE (07:10)
[2021-09-09] MEDS ORDERED: MIDAZOLAM 1 MG/ML 5 ML VIAL IV STA (09:23)
[2021-09-09] MEDS ORDERED: LIDOCAINE 1% INJ 10MG/ML (20 ML MDV) ONE ×2 (10:14→10:16)
[2021-09-09] MEDS ORDERED: SODIUM CHLORIDE 0.9% 100 ML BAG ONE (10:16)
[2021-09-09] MEDS ORDERED: HEPARIN SODIUM,PORCINE 10,000 UNIT/ML 1 ML VIAL ONE (10:16)
[2021-09-09] MEDS ORDERED: PHENYLEPHRINE-0.9% NACL SYG 1,000 MCG/10 ML SYRINGE ONE (10:16)
[2021-09-09] MEDS ORDERED: ROCURONIUM 10 MG/ML (5 ML VIAL) IV ONE (10:16)
[2021-09-09] MEDS ORDERED: ceFAZolin 1,000 MG VIAL ONE (10:16)
[2021-09-09] MEDS ORDERED: MIDAZOLAM 2 MG/2 ML VIAL ONE (10:16)
[2021-09-09] MEDS ORDERED: NEOSTIGMINE 1 MG/ML 10 ML VIAL ONE (10:16)
[2021-09-09] MEDS ORDERED: GLYCOPYRROLATE 0.2 MG/ML 2 ML VIAL ONE (10:16)
[2021-09-09] MEDS ORDERED: PROTAMINE SULFATE 10 MG/ML 5 ML VIAL IV ONE (10:16)
[2021-09-09] MEDS ORDERED: PROPOFOL 10 MG/ML 20 ML VIAL IV ONE (10:16)
--- NOTE | 2021-09-09 10:17 | P.ANPRN ---
Procedure Note - Anesthesia - VAL Intraop Pre Bypass VAL Intraop - Anesthesia Indication: Transcatheter Aortic valve replacement procedure Date of Procedure: 09/09/21 Pre-operative Diagnosis: Severe aortic stenosis Post-operative Diagnosis: Severe aortic stenosis Surgeon: Edilberto Haines Left Ventricle: Ejection fraction 35-40% Ejection Fraction: Normal Regional Wall Motion Abnormalities: None R. Ventricle Function: Normal Aortic Valve: Aortic valve severely calcified, valve area is 0.6 cm by planimetry. Peak gradient is 52 mm of Hg and mean is 36 mm of Hg. Anatomy: Trileaflet Aortic Stenosis: Severe Aortic Regurgitation: Moderate Mitral Stenosis: None Mitral Regurgitation: Moderate ([id number]) Tricuspid Stenosis: None Tricuspid Regurgitation: Mild Pulmonic Stenosis: None Pulmonic Regurgitation: Trace R. Atrial Dilation: Yes L. Atrial Dilation: Yes Aorta: Grade 2 atherosclerosis and calcification present in the aorta Aortic Dissection: No Aortic Calcification: Moderate Plural Effusion: None - VAL Intraop Post Bypass VAL Intraop Post Bypass Procedure Performed: Transcatheter aortic valve replacement Left Ventricle: Ejection fraction 35-40% R. Ventricle Function: Normal Aortic Valve: Prosthetic aortic valve in position. Seated well. Mean gradient 6 mm Hg and recruitment is 13 mm of Hg. Mild aortic regurgitation seen eccentrically di rected. Mitral Valve: Unchanged Tricuspid: Unchanged Pulmonic: Unchanged Aortic Dissection: No
[2021-09-09] MEDS ORDERED: NITROGLYCERIN-D5W PMX 50 MG in DEXTROSE/WATER 1 250ML.BAG IV ONE (10:30)
[2021-09-09] MEDS ORDERED: IOPAMIDOL-370 125ML BTL INJ ONE (11:44)
--- NOTE | 2021-09-09 12:11 | P.OP ---
Description of Procedure: Transcatheter Aoritc Valve Replacement Operative report PROCEDURE PERFORMED: 1. Percutaneous Aortic Valve Implantation using a 34 mm Core-Valve Evolut-Pro Plus. 2. Transesophageal echocardiography (performed by anesthesia) 3. Ultrasound guided access and repair of right femoral artery access site by Perclose closure device. 4. Placement of temporary pacemaker wire. 5. Aortic root angiography 6. Pre and post TAVR balloon aortic valvuloplasty with a 24mm Z Med and 26mm True balloon respectively INDICATIONS: 1. 80 year-old with a history of severe symptomatic aortic valve stenosis. 2. Coronary artery disease, hypertension, hyperlipidemia, cardiomyopathy with ejection fraction 30-35%, atrial fibrillation, COPD, frailty PERFORMING PHYSICIANS: 1. Fuad Kay DO Interventional Cardiology 2. Liang Grant MD Interventional Cardiology. 3. Edilberto Haines MD, Cardiothoracic Surgeon. 4. Melvin Velarde MD Proctoring Interventional cardiology SEDATION: General anesthesia provided by anesthesia, see separate note APPROACH: Right femoral artery via percutaneous approach PROCEDURE DESCRIPTION: The patient was discussed at valve clinic with multidisciplinary approach with cardiothoracic surgeon as well as ladle builder and thought better treated with TAVR. Risks, benefits, and alternatives of the procedure had been explained to the patient who understood the risks and agreed to proceed. After consents were obtained, patient was brought to the transcatheter aortic valve implantation room in the cardiac clinical laboratory aide and general anesthesia was provided by the anesthesiologist (see separate report). Once full body sterile prep was performed, right subclavian venous access was obtained and a temporary pacemaker was screwed in, performed by cardiothoracic surgery. Pacing threshholds were checked and deemed appropriate. Next the left femoral artery was accessed using a modified Seldinger technique, ultrasound guidance and micropuncture technique. A 6 Tristanian Rabi sheath was placed in the left femoral artery. Next, a 6-Tristanian pigtail catheter was advanced into the aorta and positioned in the aortic root, aortic root angiography was performed to determine optimal deployment angle. The right femoral artery was accessed using modified Seldinger technique, micropuncture technique and under direct ultrasound guidance. Femoral angiogram was done showing access in the common femoral artery and a 6Fr sheath was placed. Next preclose technique was performed using 2 Percloses. Next a 0.035 Lunderquist wire was placed in the Aorta via a pigtail catheter. Over that the arteriotomy was serially dilated and a 18 Fr [place] sheath was placed. Next a 6F- AL1 catheter was advanced over a wire to the aortic root. A straight wire was advanced through the catheter and used to cross the severely stenotic valve. The AL1 was then exchanged for a 6Fr pigtail catheter and pressure measurements were obtained. The 0.035 Lunderquist wire was then positioned in the apex. Next pre-TAVR balloon aortic valvuloplasty was performed with a rapid pacing with a 24 mm Z Med balloon. Next a 34 mm Corevalve Evolut-Pro Plus was advanced. The valve was then positioned across the aortic valve and confirmed with aortic root angiography. The valve was then deployed in proper position using slow deployment and with rapid pacing in conjuncture with aortic root angiography and VAL. The delivery system was withdrawn back into the arch and an aortic root injection in conjunction with VAL demonstrated mild to moderate paravalvular le ak and therefore the decision was made to perform post balloon aortic valvuloplasty. BAV was performed with a 26mm True balloon with rapid pacing. VAL demonstrated mild para valvular leak. There was no evidence of any other significant abnormalities. The preclose Perclose was then deployed in the right femoral artery and there was still mild oozing and therefore an 8 Fr Angioseal was placed over the perclose with hemostasis achieved. A rim catheter was then advanced to the level of the iliac bifurcation via the femoral access. Femoral angiogram was performed that showed no contrast leak. The left femoral angiogram demonstrated an arteriotomy in the common femoral artery and this was repaired using a 6F angioseal device with complete hemostasis. The temporary venous pacemaker was sutured in place. The patient was then transported to the ICU in hemodynamically stable condition, requiring no pressor support. COMPLICATIONS: None CONCLUSION: 1. Implantaion of 34 Core-Valve Evolut-Pro Plus transcatheter aortic valve via right femoral approach under VAL and fluoro guidance with mild ramon-valvular aortic regurgitation. 2. Placement of temporary pacemaker wire 3. Aortic Root Aortogram. 4. Pre and post TAVR balloon aortic valvuloplasty with a 24mm Z Med and 26mm True balloon respectively RECOMMENDATIONS: The patient will be monitored in the ICU for hemodynamic and electrical stabi lity. Patient will be on Eliquis and Plavix.
[2021-09-09 12:29] LABS: Glucose,Whole Blood 124 mg/dL (75-99)
[2021-09-09] MEDS ORDERED: diphenhydrAMINE 50 MG/ML 1 ML VIAL ONE (12:37)
[2021-09-09] MEDS ORDERED: methylPREDNISolone SOD SUCCI 125 MG/2 ML VIAL IV STA (12:38)
[2021-09-09] MEDS ORDERED: diphenhydrAMINE 50 MG/ML 1 ML VIAL IVP STA (12:39)
[2021-09-09] MEDS ORDERED: RACEPINEPHRINE 2.25% NEB 0.5 ML NEBU INHALATION STA (12:39)
[2021-09-09] MEDS ORDERED: IPRATROPIUM-ALBUTEROL 3 ML NEB INHALATION STA (12:51)
[2021-09-09] MEDS ORDERED: ONDANSETRON 4 MG/2 ML VIAL IVP PRN (13:05)
[2021-09-09] MEDS ORDERED: ACETAMINOPHEN TAB 325 MG TAB PO PRN (13:05)
[2021-09-09] MEDS ORDERED: IPRATROPIUM-ALBUTEROL 3 ML NEB INHALATION PRN (13:05)
--- NOTE | 2021-09-09 13:40 | P.OP ---
Date of Procedure: 09/09/21 Preoperative Diagnosis: Calcific aortic stenosis Postoperative Diagnosis: Same Procedure(s) Performed: Transcatheter aortic valve implantation with 34 mm Medtronic Evolute core valve pro-plus prosthesis Implants: 34 mm core valve Anesthesia: GETA Surgeon: Edilberto Haines Psychological Aide #1: Fuad Kay (First lapping machine set up operator) Psychological Aide #2: Liang Grant (Second lapping machine set up operator) Estimated Blood Loss (ml): 25 IV fluids (ml): 1,000 Pathology: none sent Condition: stable Disposition: ICU Indications for Procedure: 80-year-old frail gentleman with severe symptomatic aortic stenosis as well as moderate aortic insufficiency. Was evaluated in the high risk valve clinic and felt to be most appropriate for TAVR. Operative Findings: Final echocardiography demonstrated excellent expansion of the valve frame with very mild paravalvular leak. Completion angiography of the right lower extremity demonstrated no extravasation and no evidence of stenosis. Description of Procedure: Patient was brought to the catheterization lab anesthetized and intubated. Anterior torso and bilateral groins were sterilely prepped and draped. The right subclavian vein was punctured and a guidewire threaded into the right atrium. Introducer and dilator were placed over the guidewire and through the introducer sheath a screw-in ventricular lead was manipulated into the apex of the right ventricle. Here capture was less than 1 V and the lead was secured to the skin with 2-0 silk suture ligatures. Bilateral femoral access was obtained under ultrasound guidance. On the left a long 6-Croatian sheath was placed up into the descending thoracic aorta. On the right 2 Perclose devices were deployed and then a 9-Croatian sheath was placed. The patient was systemically heparinized. Pigtail catheter was placed on the left and advanced into the noncoronary sinus of Valsalva. An aortic root injection was performed. On the right a stiff wire was used to exchange the 9-Croatian sheath for a 18-Croatian sheath after serial dilatations. Through this a straight wire was used to cross the valve and a pigtail catheter placed in the apex of the left ventricle. Transvalvular gradients were measured. 34 core valve had been loaded on the back table was brought up on the field. It was examined under fluoroscopy and noted to be properly loaded. Through the 18-Croatian sheath a 22mm Reliant balloon was advanced across the aortic valve. Valvuloplasty was performed under rapid ventricular pacing. This proceeded without event. The balloon was removed and the wire left in the apex of the ventricle. The 18-Croatian sheath was exchanged for the 34 core valve delivery system and this was advanced without difficulty into the iliac system and then upwards through the aorta around the arch across the aortic valve. Transcatheter valve was deployed under rapid ventricular pacing with levels of 3 on the right and 5 on the left. There was still mild to moderate aortic valvular insufficiency after pulling the valve deployment system back and aortic root injection showed moderate aortic insufficiency. Was decided to post-dilate. The valve delivery system was removed over the straight wire and the 18-Croatian sheath reinserted. Pigtail catheter was advanced from the right across the valve and the stiff wire was again placed at the apex of the ventricle. 26mm true balloon Was advanced across the valve prosthesis and valvuloplasty of the prosthesis was performed under rapid ventricular pacing. Balloon and guidewire were pulled back. Was now only a very small paravalvular leak remaining. Valve frame appeared to be better expanded. At this point we were happy with the final result and heparin was reversed with protamine. The balloon catheter was pulled out and the 18- Croatian Sheath was removed. Perclose devices were deployed unfortunately one failed. This was salvaged with 8-Croatian Angio-Seal. This was our planned bailout. Completion angiography revealed excellent final outcome of the right Marques arterial access site. The left sheath was removed and hemostasis obtained by cardiology. Vision was transferred to ICU in stable condition.
--- NOTE | 2021-09-09 14:04 | XR ---
EXAMINATION TYPE: XR chest 1V portable DATE OF EXAM: 09/09/2021 COMPARISON: Chest x-ray 08/10/2021 HISTORY: Postop TECHNIQUE: Single frontal view of the chest is obtained. FINDINGS: There is no focal air space opacity, pleural effusion, or pneumothorax seen. The cardiac silhouette size is stable candidate for differences in technique, there is dense. Patient is status p ost TAVR procedure. Patient is rotated, there are overlying leads, artifacts The osseous structures a re intact, arthropathy noted in the shoulders. IMPRESSION: No acute process.
[2021-09-09] MEDS: LACTATED RINGERS 1,000 ML IV SCH (14:27)
--- NOTE | 2021-09-09 16:50 | P.CNPUL ---
History of Present Illness Consult date: 09/09/21 Requesting physician: Edilberto Haines Reason for consult: other Chief complaint: Calcific aortic stenosis, S/P TAVR History of present illness: 80-year-old with past medical history of coronary artery disease, previous history of myocardial infarction, hypertension, hyperlipidemia, chronic atrial fibrillation on Eliquis. Patient continues to smoke an occasional cigar. Does not drink alcohol in excess. Patient has been having symptoms of worsening shortness of breath the past several months. He follows with Dr. Grant at the cardiology office. His EKG showed A. fib with a controlled rate, echocardiogram showed aortic valve area of 0.6 with an ejection fraction of 30-35%, peak gradient of 67, mean gradient of 41 despite the low EF and grade 3 diastolic dysfunction with severe mitral annular calcification mild mitral regurgitation and mild tricuspid regurgitation. He also has some mild to moderate aortic insufficiency. Patient had a cardiac catheterization that showed mild disease in the LAD, moderate disease in the circumflex and a patent RCA stent with moderate disease in the right coronary artery. There was no significant coronary stenosis. There was pulmonary hypertension with PA pressure of 60/33. Carotid ultrasound showed moderate disease bilaterally, bedside FEV1 was 64% of predicted or 1.59 L. Dental clearance was obtained. However his surgical risk for aortic valve surgery was poor related to his poor performance status and frailty, and patient did very poorly on his walk test. She was referred to the heart valve clinic and referred to CT surgery for possibility of transcatheter aortic valve replacement. On 09/09/2021 patient came in for elective transcatheter aortic valve implantation with 34 mm Medtronic Evolute cor valve pro-plus prosthesis. Postoperative echocardiogram demonstrated excellent expansion of the valve frame with very mild paravalvular leak. Following the procedure patient is seen in the ICU. He is awake and alert, in no acute distress, he is on room air, breathing comfortably, pulse ox 98%, hemodynamically stable, afebrile. Follow-up chest x-ray shows no acute process, status post TAVR procedure. Review of Systems All systems: negative Constitutional: Reports fatigue, Denies chills, Denies fever Eyes: denies blurred vision, denies pain Ears, nose, mouth and throat: Denies headache, Denies sore throat Cardiovascular: Reports decreased exercise tolerance, Reports dyspnea on e xertion, Reports shortness of breath, Denies chest pain Respiratory: Denies cough Gastrointestinal: Denies abdominal pain, Denies diarrhea, Denies nausea, Denies vomiting Musculoskeletal: Denies myalgias Integumentary: Denies pruritus, Denies rash Neurological: Denies numbness, Denies weakness Psychiatric: Denies anxiety, Denies depression Endocrine: Denies fatigue, Denies weight change Past Medical History Past Medical History: Coronary Artery Disease (CAD), Heart Failure, Hearing Disorder / Deafness, Hyperlipidemia, Hypertension, Myocardial Infarction ([place]), Prostate Disorder Additional Past Medical History / Comment(s): Urinary hesitancy, Enlarged prostate, Controlled A-fib, SOB w/exertion Last Myocardial Infarction Date:: 2013 History of Any Multi-Drug Resistant Organisms: None Reported Past Surgical History: Heart Catheterization, Heart Catheterization With Stent Additional Past Surgical History / Comment(s): 1 stent placed in 2013, Nasal surgery Past Anesthesia/Blood Transfusion Reactions: No Reported Reaction Date of Last Stent Placement:: 2013 Smoking Status: Current some day smoker - Past Family History Mother Family Medical History: Congestive Heart Failure (CHF) Father Additional Family Medical History / Comment(s): Unsure what father from Brother(s) Additional Family Medical History / Comment(s): One brother with heart murmur Medications and Allergies Home Medications Medication Instructions Recorded Confirmed Type Atorvastatin [Lipitor] 40 mg PO HS 08/10/21 09/09/21 History Nitroglycerin Sl Tabs [Nitrostat] 0.4 mg SUBLINGUAL Q5M PRN 08/10/21 09/04/21 History Apixaban [Eliquis] 2.5 mg PO BID #60 tablet 08/13/21 09/09/21 Rx Losartan [Cozaar] 25 mg PO HS #30 tab 08/13/21 09/09/21 Rx Metoprolol Tartrate [Lopressor] 12.5 mg PO DAILY #30 tab 08/13/21 09/09/21 Rx Spironolactone [Aldactone] 12.5 mg PO DAILY #30 tab 08/13/21 09/09/21 Rx Furosemide [Lasix] 20 mg PO BID@0900,1600 09/04/21 09/09/21 History Allergies Allergy/AdvReac Type Severity Reaction Status Date / Time Sulfa (Sulfonamide AdvReac Rash/Hives Verified 09/04/21 15:48 Antibiotics) ticagrelor [From Brilinta] AdvReac Rash/Hives Verified 09/04/21 15:48 Physical Exam Vitals: Vital Signs Temp Pulse Pulse Resp BP BP BP 09/09/21 13:20 68 25 H 116/62 09/09/21 13:10 56 L 6 L 106/61 09/09/21 13:00 51 L 6 L 137/74 09/09/21 12:52 44 L 16 09/09/21 12:50 43 L 17 137/74 09/09/21 12:40 68 24 77/56 09/09/21 12:30 64 27 H 77/56 09/09/21 12:23 69 0 L 09/09/21 07:18 97.9 F 78 18 110/55 118/78 BP Pulse Ox 09/09/21 13:20 99 09/09/21 13:10 99 09/09/21 13:00 99 09/09/21 12:52 09/09/21 12:50 98 09/09/21 12:40 92 L 09/09/21 12:30 99 09/09/21 12:23 97 09/09/21 07:18 108/57 99 Intake and Output 09/09/21 09/09/21 09/09/21 06:59 14:59 22:59 Intake Total 200 Balance 200 Intake: IV 200 Other: Weight 97.9 kg ABP, PAP, CO, CI - Last 8 Hours Arterial Blood Pressure 127/55 Arterial Blood Pressure 113/49 Arterial Blood Pressure 118/52 Arterial Blood Pressure 118/51 Arterial Blood Pressure 140/62 Arterial Blood Pressure 100/49 GENERAL EXAM: Alert, very pleasant, hard of hearing 80-year-old white male, on room air with a pulse ox of 98% comfortable in no apparent distress. HEAD: Normocephalic/atraumatic. EYES: Normal reaction of pupils, equal size. Conjunctiva pink, sclera white. NOSE: Clear with pink turbinates. THROAT: No erythema or exudates. NECK: No masses, no JVD, no thyroid enlargement, no adenopathy. CHEST: No chest wall deformity. Symmetrical expansion. Right chest temporary pacemaker leads in place, covered with a dressing, insertion site is clean dry and intact no hematoma. LUNGS: Equal air entry with no crackles, wheeze, rhonchi or dullness. CVS: Regular rate and rhythm, normal S1 and S2, no gallops, no murmurs, no rubs ABDOMEN: Soft, nontender. No hepatosplenomegaly, normal bowel sounds, no guarding or rigidity. EXTREMITIES: No clubbing, no edema, no cyanosis, 2+ pulses and upper and lower extremities. Bilateral groin puncture sites are clean dry and intact, soft, no evidence of hematoma MUSCULOSKELETAL: Muscle strength and tone normal. SPINE: No scoliosis or deformity SKIN: No rashes CENTRAL NERVOUS SYSTEM: Alert and oriented -3. No focal deficits, tone is normal in all 4 extremities. PSYCHIATRIC: Alert and oriented -3. Appropriate affect. Intact judgment and insight. Results - Laboratory Findings Abnormal lab findings: Abnormal Labs 09/07/21 09/09/21 09/09/21 12:21 07:07 12:28 POC Glucose (mg/dL) 103 H 124 H Crossmatch See Detail - Diagnostic Findings Chest x-ray: report reviewed, image reviewed Assessment and Plan Plan: Assessment: #1. Severe symptomatic aortic stenosis, and moderate aortic insufficiency, status post trans-catheter aortic valve implantation with 34 millimeter Medtronic Evolute core valve pro plus prosthesis on 09/09/2021 #2. Exertional dyspnea, fatigue, shortness of breath related to severe aortic stenosis #3. History of coronary artery disease with previous stenting #4. Hypertension #5. Hyperlipidemia #6. History of atrial fibrillation, on Eliquis #7. History of myocardial infarction #8. Occasional cigar smoking #9. History of ischemic cardiomyopathy and ejection fraction 30-35% #10. Chronic congestive heart failure with systolic dysfunction #11. BPH Plan: Patient is doing well in the postoperative period, he was seen and evaluated in the ICU Hemodynamically stable Breathing comfortably Postprocedure chest x-ray has been reviewed showing no acute process Vital signs are stable, patient is on room air Continue nebulized bronchodilators as needed Provide incentive spirometer, Antibiotics, GI and DVT prophylaxis per CT surgery and cardiology Follow-up chest x-ray and echocardiogram in the morning We'll continue to follow his clinical course in the intensive care unit I performed a history & physical examination of the patient and discussed their management with my nurse practitioner, Irene Dozier. I reviewed the nurse practitioner's note and agree with the documented findings and plan of care. Lung sounds are positive for diminished breath sounds throughout the lung szymanski. The findings and the impression was discussed with the patient. I attest to the documentation by the nurse practitioner. Time with Patient: Greater than 30
[2021-09-09 19:25] LABS: Basophils % (A) 0 %; Eosinophils % (A) 0 %; HCT 36.2 % (39.0-53.0); HGB 11.8 gm/dL (13.0-17.5); Lymphocytes # (A) 0.4 k/uL (1.0-4.8); Lymphocytes % (A) 3 %; MCH 32.7 pg (25.0-35.0); MCHC 32.5 g/dL (31.0-37.0); MCV 100.5 fL (80.0-100.0); Mean Platelet Volume 8.4; Monocytes # (A) 0.1 k/uL (0-1.0); Monocytes % (A) 1 %; Neutrophils # (A) 10.5 k/uL (1.3-7.7); Neutrophils % (A) 95 %; Platelet Count 156 k/uL (150-450); RDW 13.6 % (11.5-15.5); WBC 11.1 k/uL (3.8-10.6)
[2021-09-09 19:29] LABS: Ionized Calcium 4.6 mg/dL (4.5-5.3)
[2021-09-09 19:34] LABS: Albumin 3.6 g/dL (3.5-5.0); Calcium 8.8 mg/dL (8.4-10.2); Magnesium 2.1 mg/dL (1.6-2.3); Potassium 4.4 mmol/L (3.5-5.1); Total Bilirubin 1.1 mg/dL (0.2-1.3); Total Protein 6.3 g/dL (6.3-8.2)
[2021-09-09 19:43] LABS: Partial Thromboplastin Time 23.6 sec (22.0-30.0); Prothrombin Time 10.7 sec (9.0-12.0)
[2021-09-09] MEDS ORDERED: ATORVASTATIN 40 MG TAB PO SCH (21:00)
[2021-09-09] MEDS ORDERED: LOSARTAN 25 MG TAB PO SCH (21:00)
[2021-09-09] MEDS: HEPARIN SODIUM,PORCINE/PF 5,000 UNIT/0.5 ML SYRINGE SQ SCH (23:47)
[2021-09-10 05:27] LABS: Basophils % (A) 0 %; Eosinophils % (A) 0 %; HCT 35.7 % (39.0-53.0); HGB 11.6 gm/dL (13.0-17.5); Lymphocytes # (A) 0.5 k/uL (1.0-4.8); Lymphocytes % (A) 5 %; MCH 32.6 pg (25.0-35.0); MCHC 32.4 g/dL (31.0-37.0); MCV 100.4 fL (80.0-100.0); Mean Platelet Volume 8.5; Monocytes # (A) 0.3 k/uL (0-1.0); Monocytes % (A) 3 %; Neutrophils # (A) 9.3 k/uL (1.3-7.7); Neutrophils % (A) 93 %; Platelet Count 154 k/uL (150-450); RBC 3.56 m/uL (4.30-5.90); RDW 13.6 % (11.5-15.5)
[2021-09-10 05:49] LABS: Ionized Calcium 4.6 mg/dL (4.5-5.3)
[2021-09-10 06:05] LABS: Albumin 3.7 g/dL (3.5-5.0); Calcium 8.8 mg/dL (8.4-10.2); Magnesium 2.1 mg/dL (1.6-2.3); Potassium 4.2 mmol/L (3.5-5.1); Total Bilirubin 0.8 mg/dL (0.2-1.3); Total Protein 6.4 g/dL (6.3-8.2)
--- NOTE | 2021-09-10 08:18 | XR ---
EXAMINATION TYPE: XR chest 1V portable DATE OF EXAM: 09/10/2021 COMPARISON: Chest x-ray 09/09/2021 HISTORY: Postop cardiac surgery TECHNIQUE: Single frontal view of the chest is obtained. FINDINGS: Transvenous pacemaker is present with the distal tip coursing toward the right ventricle, not included on exam. The heart is enlarged. No pneumothorax or pleural effusion. Cardiomediastinal s ilhouette is stable and within normal limits. Patient is post TAVR procedure. IMPRESSION: Cardiomegaly, postprocedural changes, there is some improvement in aeration, lung volume
[2021-09-10] MEDS: HEPARIN SODIUM,PORCINE/PF 5,000 UNIT/0.5 ML SYRINGE SQ SCH (08:24)
[2021-09-10] MEDS: LACTATED RINGERS 1,000 ML IV SCH (08:25)
[2021-09-10 08:43] VITALS: TEMP 98.2
[2021-09-10] MEDS ORDERED: APIXABAN 2.5 MG TABLET PO SCH (09:00)
[2021-09-10] MEDS ORDERED: CLOPIDOGREL 75 MG TAB PO SCH (09:00)
[2021-09-10] MEDS ORDERED: FUROSEMIDE 20 MG TAB PO SCH (09:00)
[2021-09-10] MEDS ORDERED: MAGNESIUM HYDROXIDE 2,400 MG/10 ML CUP PO PRN (09:00)
[2021-09-10] MEDS ORDERED: SPIRONOLACTONE 25 MG TAB PO SCH (09:00)
[2021-09-10] MEDS ORDERED: METOPROLOL TARTRATE 12.5 MG TAB PO SCH (09:00)
[2021-09-10 10:33] VITALS: BMI 29.7
[2021-09-10 11:21] VITALS: BP 128/74
[2021-09-10 12:13] VITALS: PULSE 7; RESP 18
--- NOTE | 2021-09-10 12:53 | P.PN ---
Subjective Progress Note Date: 09/10/21 Principal diagnosis: Status post T aVR, postoperative day #1 80-year-old with past medical history of coronary artery disease, previous history of myocardial infarction, hypertension, hyperlipidemia, chronic atrial fibrillation on Eliquis. Patient continues to smoke an occasional cigar. Does not drink alcohol in excess. Patient has been having symptoms of worsening shortness of breath the past several months. He follows with Dr. Grant at the cardiology office. His EKG showed A. fib with a controlled rate, echocardiogram showed aortic valve area of 0.6 with an ejection fraction of 30-35%, peak gradient of 67, mean gradient of 41 despite the low EF and grade 3 diastolic dysfunction with severe mitral annular calcification mild mitral regurgitation and mild tricuspid regurgitation. He also has some mild to moderate aortic insufficiency. Patient had a cardiac catheterization that showed mild disease in the LAD, moderate disease in the circumflex and a patent RCA stent with moderate disease in the right coronary artery. There was no significant coronary stenosis. There was pulmonary hypertension with PA pressure of 60/33. Carotid ultrasound showed moderate disease bilaterally, bedside FEV1 was 64% of predicted or 1.59 L. Dental clearance was obtained. However his surgical risk for aortic valve surgery was poor related to his poor performance status and frailty, and patient did very poorly on his walk test. She was referred to the heart valve clinic and referred to CT surgery for possibility of transcatheter aortic valve replacement. On 09/09/2021 patient came in for elective transcatheter aortic valve implantation with 34 mm [employer] Evolute cor valve pro-plus prosthesis. Postoperative echocardiogram demonstrated excellent expansion of the valve frame with very mild paravalvular leak. Following the procedure patient is seen in the ICU. He is awake and alert, in no acute distress, he is on room air, breathing comfortably, pulse ox 98%, hemodynamically stable, afebrile. Follow-up chest x-ray shows no acute process, status post TAVR procedure. Reevaluated today on 09/10/21, patient remains in the ICU, on room air, in no distress, he is postoperative day #1. CBC is normal electrolytes are normal patient denies any cough wheezing or shortness of breath, denies any chest pain. Denies any GI or urgency and no symptoms. Objective - Vital Signs Vital signs: Vital Signs Temp 98.2 F 09/10/21 12:00 Pulse 7 L 09/10/21 12:00 Resp 18 09/10/21 12:00 BP 128/74 09/10/21 10:00 Pulse Ox 95 09/10/21 12:00 Intake & Output 09/09/21 09/10/21 09/10/21 18:59 06:59 18:59 Intake Total 450 600 150 Output Total 401 200 Balance 450 199 -50 Weight 97.9 kg 86.1 kg 86.1 kg Intake: IV 450 550 50 Lactated Ringers 1,000 ml 250 550 50 @ 50 mls/hr IV .Q20H MARIANNE Rx#:[id number] Intake, IV Titration 50 100 Amount ceFAZolin 2 gm In Sodium 50 100 Chloride 0.9% 50 ml @ 100 mls/hr IVPB Q8HR MARIANNE Rx# :[id number] Output: Urine 400 200 Urine/Stool Mix 1 Other: # Voids 1 # Bowel Movements 1 ABP, PAP, CO, CI - Last Documented Arterial Blood Pressure 141/69 - Exam Physical Exam: Revealed an 81-year-old white male in no distress HEENT:[Neck is supple.] [No neck masses.] [No thyromegaly.] [No JVD.] Chest: [Clear throughout, no crackles, no rhonchi, no wheezes.] Cardiac Exam: [Normal S1 and S2, no S3 gallop, 2/6 systolic murmur thought the precordium. Abdomen: [Soft, nontender, no megaly, no rebound, no guarding, normal bowel sounds.] Extremities: [No clubbing, no edema, no cyanosis.] Neurological Exam: [No focal neurologic deficit.] Alert oriented 3. - Labs CBC & Chem 7: 09/10/21 04:33 09/10/21 04:33 Labs: Abnormal Lab Results - Last 24 Hours (Table) 09/07/21 09/09/21 09/09/21 Range/Units 12:21 19:17 19:17 WBC 11.1 H (3.8-10.6) k/uL RBC 3.60 L (4.30-5.90) m/uL Hgb 11.8 L (13.0-17.5) gm/dL Hct 36.2 L (39.0-53.0) % MCV 100.5 H (80.0-100.0) fL Neutrophils # 10.5 H (1.3-7.7) k/uL Lymphocytes # 0.4 L (1.0-4.8) k/uL Sodium 131 L (137-145) mmol/L Carbon Dioxide 20 L (22-30) mmol/L BUN 26 H (9-20) mg/dL Glucose 140 H (74-99) mg/dL Crossmatch See Detail 09/10/21 09/10/21 Range/Units 04:33 04:33 WBC (3.8-10.6) k/uL RBC 3.56 L (4.30-5.90) m/uL Hgb 11.6 L (13.0-17.5) gm/dL Hct 35.7 L (39.0-53.0) % MCV 100.4 H (80.0-100.0) fL Neutrophils # 9.3 H (1.3-7.7) k/uL Lymphocytes # 0.5 L (1.0-4.8) k/uL Sodium 131 L (137-145) mmol/L Carbon Dioxide 19 L (22-30) mmol/L BUN 26 H (9-20) mg/dL Glucose 147 H (74-99) mg/dL Crossmatch Assessment and Plan Assessment: Impression: Status post CABG, postoperative day #1 Severe aortic stenosis. Coronary artery disease. Chronic atrial fibrillation. Ischemic cardiomyopathy with ejection fraction of 30-35% Chronic systolic congestive heart failure. Recommendation: Patient was cleared by other consultants to be discharged home Hence I fully agree with the plan and agree with discharging the patient home today. Follow-up on outpatient basis with different consultants as needed. Time with Patient: Less than 30
--- NOTE | 2021-09-10 16:06 | P.DS ---
Providers Date of admission: 09/09/21 06:30 Expected date of discharge: 09/10/21 Attending physician: Fuad Kay DO Consults: 09/09/21 12:17 Consult Physician Routine Consulting Provider: Edilberto Haines Consult Reason/Comments: post tavr Do you want consulting provider notified?: Already Contacted 09/09/21 13:05 Consult Physician Routine Consulting Provider: Grace Cook Reason/Comments: Corpsman Consult: post cardiac surgery Do you want consulting provider notified?: Yes Primary care physician: Munir Ureña [facility] Course: MEDICAL HISTORY: 1. Calcified aortic valve with severe symptomatic aortic valve stenosis 2. CAD with myocardial infarction status post PCI in 2013 3. Cardiomyopathy with ejection fraction 30-35% 4. Hypertension 5. Hyperlipidemia 6. Chronic atrial fibrillation on Eliquis for anticoagulation 7. BPH 8. COPD 9. Frailty PROCEDURE: 1. Percutaneous aortic valve implantation using a 34 mm Core Valve Evolute-Pro Plus under VAL and fluoroscopy guidance 2. Transesophageal echocardiography performed by anesthesia 3. Ultrasound-guided access and repair of right femoral artery access site by Perclose closure device 4. Placement of temporary pacemaker wire 5. Aortic root angiography 6. Pre-and post-TAVR balloon aortic valvuloplasty with a 24 mm Z Med and 26 mm True balloon respectively HISTORY OF PRESENT ILLNESS: This is an 80-year-old gentleman who follows on an outpatient basis with Dr. Gary Huggins for primary care and Dr. Paulino for cardiology. He has a known history of severe aortic stenosis and has been symptomatic with progressive exertional dyspnea as well as occasional chest discomfort, consistent with NYHA class III symptoms. He had been referred to structural heart clinic for evaluation for transcatheter aortic valve replacement after heart catheterization and transesophageal echocardiogram were completed. Echocardiography demonstrated reduced left ventricular systolic function with EF 30-35%, grade 3 diastolic dysfunction, aortic valve area 0.6 cm with a peak/mean gradient 67/41 mmHg. Heart catheterization showed patent stent to the RCA, and mild nonobstructive disease in the LAD and circumflex coronary artery along with pulmonary hypertension. After workup was completed STS risk score was calculated along with incremental risk and the patient was felt to be very high risk for surgical aortic valve replacement, therefore transcatheter aortic valve replacement was recommended. The usual course of TAVR was discussed in detail the patient, risks and benefits were reviewed, shared decision making between cardiology, surgery, and the patient/family took place, and the patient consented to proceed with the procedure. HOSPITAL COURSE: The patient was brought to the hospital on 09/09/21 and was taken to the extended stay area, prepared in the usual fashion, and subsequently taken to the cardiac catheterization laboratory where Dr. Kay and Dr. Haines completed TAVR procedure under general anesthesia with fluoroscopy and VAL. The valve was deployed under rapid ventricular pacing and proceeded without event. At the end of the procedure there was mild paravalvular leak with no evidence of any other significant abnormalities. Upon completion of the procedure the patient was extubated and was transferred to the cardiovascular intensive care unit where he was recovered and monitored hemodynamically. His oxygen was titrated down, he was tolerating oral diet, his pain was controlled, follow-up TTE demonstrated mild aortic insufficiency, and he was ready to be discharged to home with [facility] care on postoperative day #1. He received written and verbal instruction regarding his medications, activity restrictions, signs and symptoms requiring physician notification, and follow-up appointments. Patient Condition at Discharge: Stable Plan - Discharge Summary Discharge Rx Participant: No New Discharge Prescriptions: New Acetaminophen Tab [Tylenol] 650 mg PO Q4HR PRN tab PRN Reason: Fever And/ Or Mild Pain (1-3) Clopidogrel Bisulfate [Plavix] 75 mg PO DAILY #30 tab Losartan [Cozaar] 25 mg PO HS #30 tab Continue Nitroglycerin Sl Tabs [Nitrostat] 0.4 mg SUBLINGUAL Q5M PRN PRN Reason: Chest Pain Atorvastatin [Lipitor] 40 mg PO HS Furosemide [Lasix] 20 mg PO BID@0900,1600 Apixaban [Eliquis] 2.5 mg PO BID #60 tablet Spironolactone [Aldactone] 12.5 mg PO DAILY #30 tab Metoprolol Tartrate [Lopressor] 12.5 mg PO DAILY #30 tab Discharge Medication List Atorvastatin [Lipitor] 40 mg PO HS 08/10/21 [History] Nitroglycerin Sl Tabs [Nitrostat] 0.4 mg SUBLINGUAL Q5M PRN 08/10/21 [History] Metoprolol Tartrate [Lopressor] 12.5 mg PO DAILY #30 tab 08/13/21 [Rx] Spironolactone [Aldactone] 12.5 mg PO DAILY #30 tab 08/13/21 [Rx] Furosemide [Lasix] 20 mg PO BID@0900,1600 09/04/21 [History] Acetaminophen Tab [Tylenol] 650 mg PO Q4HR PRN tab 09/10/21 [Rx] Apixaban [Eliquis] 2.5 mg PO BID #60 tablet 09/10/21 [Rx] Clopidogrel Bisulfate [Plavix] 75 mg PO DAILY #30 tab 09/10/21 [Rx] Losartan [Cozaar] 25 mg PO HS #30 tab 09/10/21 [Rx] Follow up Appointment(s)/Referral(s): Edilberto Paz MD [REFERRING] - As Needed [facility], [NON-STAFF] - 1-2 Days Manish Paulino MD [STAFF PHYSICIAN] - 09/17/21 3:15 pm (Your appointment on 09/17 is for groin check with Dr. Paulino; you will also have an appointment 10/15/21 at 10:00 AM for your 30 day post TAVR echocardiogram) Valentina Valerio NPC [Nurse Practitioner] - 10/15/21 11:00 am (Your appointment will be in the valve clinic behind the hospital in [facility], [address] [place] [address] [address] after your 30 day echo appointment at Dr. Paulino's office) Activity/Diet/Wound Care/Special Instructions: DISCHARGE INSTRUCTIONS: 1. No driving for 1 week, or until physician gives their ok. 2. No lifting, pushing, or pulling more than 5-10 pounds for 1 week. 3. Hold both groins when you cough or sneeze for the next 2 weeks. Bruising is common, but report increased swelling, pain or fever >101F 4. Shower daily. No pool, hot tub, or bathtub for 1 week 5. No powders, lotions, ointments on incisions. 6. No straining, including for bowel movements. Use stool softner if necessary 7. Stairs are not an issue. Go slowly, using handrail and take 1 step at a time. Ambulate several times daily 8. Continue pain control per as needed orders. 9. Take only the medications listed on your discharge form 10. Eat low salt (limited to 2 grams or 2000 milligrams) daily, avoid adding salt, avoid canned/processed foods 11. Take your weight daily in the morning and record, bring with you to your follow up appointments 12. Keep all follow up appointments. You will need a valve clinic appointment at 30 days and 1 year post procedure for follow up 13. You have been referred to and are expected to begin Cardiac Rehab in approximately 4 weeks. 14. You will need antibiotics prior to any dental work, including cleanings, and any surgeries to prevent Endocarditis (bacterial infection in your heart) For any questions or concerns please call your valve coordinators: Valentina or Fede @ Discharge Disposition: HOME WITH HOME HEALTH SERVICES
[2021-09-10] MEDS ORDERED: SENNOSIDES-DOCUSATE SODIUM 1 EACH TAB PO SCH (21:00)
--- NOTE | 2021-09-15 11:01 | ECHOF ---
Referral Reason:post tavr MEASUREMENTS -------- HEIGHT: 170.2 cm WEIGHT: 97.5 kg BP: RVIDd: 3.0 cm (< 3.3) IVSd: 1.1 cm (0.6 - 1.1) LVIDd: 5.6 cm (3.9 - 5.3) LVPWd: 1.0 cm (0.6 - 1.1) IVSs: 1.7 cm LVIDs: 4.8 cm LVPWs: 1.0 cm Ao Diam: 2.6 cm (2.0 - 3.7) AV Cusp: 1.5 cm (1.5 - 2.6) LA Diam: 3.2 cm (2.7 - 3.8) MV EXCURSION: 10.759 mm (> 18.000) MV EF SLOPE: 34 mm/s (70 - 150) EPSS: 2.4 cm MV E Florencio: 0.96 m/s MV DecT: 524 ms MV A Florencio: 0.71 m/s MV E/A Ratio: 1.35 AV maxP.07 mmHg AV meanP.54 mmHg AR PHT: 924 ms RAP: 5.00 mmHg RVSP: 14.08 mmHg FINDINGS -------- This was a technically difficult study with suboptimal views. The left ventricular size is normal. Left ventricular wall thickness is normal. Overall left vent ricular systolic function is severely impaired with, an EF between 25 - 30 %. The right ventricle is normal in size. The left atrial size is normal. The right atrial size is normal. Lumason used Unable to visualize the septum. The aortic pressure half-time by doppler is 924 ms. The aortic valve area by continuity equation is 1.2 cm2. The maximum velocity across the aortic valve is 1.81m/s. Peak/mean gradient across the Ao rtic Valve is 13.07mmHg / 8.54mmHg. Normally functioning bioprosthetic valve. There is trivial pe ri-prosthetic regurgitation of the bioprosthetic aortic valve. TAVR procedure done The mitral valve leaflets are moderately thickened. Moderate mitral annular calcification present. Mild mitral regurgitation is present. Mitral Valve Area by PHT 1.5 cm2 The peak and mean MV grad ients are 13.11mmHg 4.05mmHg as measured by doppler. Moderate mitral stenosis. The tricuspid valve appears structurally normal. Mild tricuspid regurgitation present. Right vent ricular systolic pressure is normal at < 35 mmHg. The pulmonic valve is normal. There is no pulmonic regurgitation present. The aortic root size is normal. IVC Not well visulized. There is no pericardial effusion. CONCLUSIONS -------- 1. The left ventricular size is normal. 2. Left ventricular wall thickness is normal. 3. Overall left ventricular systolic function is severely impaired with, an EF between 25 - 30 %. 4. The aortic pressure half-time by doppler is 924 ms. 5. The aortic valve area by continuity equation is 1.2 cm2 6. The maximum velocity across the aortic valve is 1.81m/s. 7. Peak/mean gradient across the Aortic Valve is 13 mmHg/ 8 mmHg. 8. Normally functioning bioprosthetic valve. 9. There is trivial ramno-prosthetic regurgitation of the bioprosthetic aortic valve. 10. TAVR procedure done 11. The mitral valve leaflets are moderately thickened. 12. Moderate mitral annular calcification present. 13. Mild mitral regurgitation is present. 14. Mitral Valve Stenosis MVA By PHT 1.5 cm2 with a Peak/Mean PG 13.11mmHg 4.05mmHg 15. Moderate mitral stenosis. 16. Mild tricuspid regurgitation present. 17. There is no pericardial effusion. BLACK OFF WORKER: Valentina Gray RDCS
== END 2021-09-10 12:45 | disposition home health service (06) | DRG 267 ==
LOC: 2ORMAIN 06:30 → 2SICU 12:02
PROVIDERS: ADMIT Internal Medicine; ATTEND Internal Medicine
PROC: 5A1223Z Performance of Cardiac Pacing, Continuous (ICD-10-PCS; principal; 2021-09-09 10:15)
PROC: 02RF38Z Replacement of Aortic Valve with Zooplastic Tissue, Percutaneous Approach (ICD-10-PCS; principal; 2021-09-09 10:15)
PROC: 04QK0ZZ Repair Right Femoral Artery, Open Approach (ICD-10-PCS; principal; 2021-09-09 10:15)
PROC: B24BZZ4 Ultrasonography of Heart with Aorta, Transesophageal (ICD-10-PCS; principal; 2021-09-09 10:15)
PROC: B3101ZZ Fluoroscopy of Thoracic Aorta using Low Osmolar Contrast (ICD-10-PCS; principal; 2021-09-09 10:15)
DX: I35.2 Nonrheumatic aortic (valve) stenosis with insufficiency (principal); I48.20 Chronic atrial fibrillation, unspecified; I50.22 Chronic systolic (congestive) heart failure; I11.0 Hypertensive heart disease with heart failure; I25.10 Atherosclerotic heart disease of native coronary artery without angina pectoris; Z00.6 Encounter for examination for normal comparison and control in clinical research program; Z20.822 Contact with and (suspected) exposure to COVID-19; Z88.8 Allergy status to other drugs, medicaments and biological substances; Z88.2 Allergy status to sulfonamides; E78.5 Hyperlipidemia, unspecified; F17.290 Nicotine dependence, other tobacco product, uncomplicated; H91.90 Unspecified hearing loss, unspecified ear; I25.2 Old myocardial infarction; I25.5 Ischemic cardiomyopathy; I27.20 Pulmonary hypertension, unspecified; I35.8 Other nonrheumatic aortic valve disorders; J44.9 Chronic obstructive pulmonary disease, unspecified; N40.0 Benign prostatic hyperplasia without lower urinary tract symptoms; Z79.01 Long term (current) use of anticoagulants; Z79.899 Other long term (current) drug therapy; Z95.1 Presence of aortocoronary bypass graft; Z95.5 Presence of coronary angioplasty implant and graft
CPT/HCPCS: 33361; 71045; 80053; 82330; 83735; 85025; 85610; 85730; 86850; 86900; 86901; 86920; 87635; 93306; 93312; 93320; 93325; 94640